=== PATIENT | female | born 1950 | race Caucasian/White ===

== ENCOUNTER 2016-10-17 17:35 | Observation (INO) ==
[2016-10-17 18:03] LABS: Basophils % 0.5 %; Eosinophils # 0.1 K/mcL (0.0-0.6); Eosinophils % 1.1 %; Hematocrit 38.7 % (35.3-44.9); Hemoglobin 12.1 g/dL (11.5-15.4); Immature Granulocytes % 0.4 % (0-4); Lymphocytes # 2.3 K/mcL (0.6-4.6); Mean Corpuscular HGB Conc 31.3 g/dL (31.6-35.5); Mean Corpuscular Hemoglobin 25.3 pg (28.0-33.3); Mean Corpuscular Volume 80.8 fL (83.0-100.0); Mean Platelet Volume 10.2 fL (9.4-12.4); Monocytes # 0.6 K/mcL (0.0-1.3); Monocytes % 8.1 %; Neutrophils # 4.2 K/mcL (1.6-8.9); Platelet Count 323 K/mcL (140-400); Red Blood Count 4.79 M/mcL (3.82-4.97); Red Cell Distribution Width 17.1 % (11.5-14.5); Segmented Neutrophils % 57.9 %
[2016-10-17 18:14] LABS: Prothrombin Time 11.1 Seconds (9.4-12.1)
[2016-10-17 18:16] LABS: Activated Partial Thrombo Time 40.7 Seconds (26.0-36.0); BUN/Creatinine Ratio 14 (6-26); Blood Urea Nitrogen 12 mg/dL (7-20); Calcium 8.8 mg/dL (8.6-10.8); Carbon Dioxide 29 mEq/L (19-29); Chloride 99 mEq/L (98-109); Glucose 93 mg/dL (70-99); Osmolality,Calculated 285 (280-300); Potassium 3.2 mEq/L (3.5-4.5); Sodium 138 mEq/L (136-145); eGFR For African Americans > 60 (> 60); eGFR For Non-African Americans > 60 (> 60)
--- NOTE | 2016-10-17 18:54 | Emergency Department Note ---
Addendum entered and electronically signed by Kaden Narayan DO 10/17/16 19: 24: Troponin negative with no acute abnormalities on EKG or chest x-ray. Patient discussed with the hospitalist and the patient is accepted for further evaluation. Original Note: Disposition Clinical Impression: Chest pain Qualifiers: Chest pain type: unspecified Qualified Code(s): R07.9 - Chest pain, unspecified Disposition: Still a Patient General Adult HPI - General Chief complaint: ED Chest Pain Stated complaint: Chest pain Time Seen by Provider: 10/17/16 17:50 Source: patient Mode of arrival: ambulatory Limitations: no limitations Nursing Notes Reviewed: Yes Vital Signs Reviewed: Yes - History of Present Illness HPI Narrative: Patient here for evaluation of chest pain. History of previous CAD as well as COPD. Patient describes a substernal squeezing that this happened 3 times over the last 2 weeks. Patient states associated nausea and dyspnea. Denies diaphoresis or radiation to the extremities. Patient has cardiac stent placed greater than 5 years ago with cardiac catheterization and evaluation 3 years ago not requiring intervention. Patient follows with Dr. Nguyen at [place]. Pain Scale: 5 - Related Data Home Medications Medication Instructions Recorded Confirmed Albuterol Sulfate [Albuterol 2 puff IH Q4HR PRN 03/12/15 10/17/16 Inhaler] Aspirin 81 mg PO DAILY 03/12/15 10/17/16 Atorvastatin Calcium [Lipitor] 80 mg PO HS 03/12/15 10/17/16 Cholecalciferol (Vitamin D3) 1,000 unit PO BID 03/12/15 10/17/16 [Vitamin D] Clopidogrel [Plavix] 75 mg PO DAILY 03/12/15 10/17/16 Cyanocobalamin (Vitamin B-12) 1,000 mcg PO DAILY 03/12/15 10/17/16 [Vitamin B12] Fluticasone Propionate Nasal 2 spray NS DAILY PRN 03/12/15 10/17/16 [Flonase] Furosemide [Lasix] 80 mg PO BID 03/12/15 10/17/16 Gabapentin [Neurontin] 600 mg PO TID 03/12/15 10/17/16 Isosorbide MONOnitrate (24 HR) 120 mg PO DAILY 03/12/15 10/17/16 [Imdur] Levocetirizine Dihydrochloride 5 mg PO HS 03/12/15 10/17/16 [Xyzal] Meclizine [Antivert] 25 mg PO Q6HR PRN 03/12/15 10/17/16 Montelukast [Singulair] 10 mg PO HS 03/12/15 10/17/16 Pantoprazole Sodium [Protonix] 40 mg PO BID 03/12/15 10/17/16 Potassium Chloride 20 meq PO BID 03/12/15 10/17/16 Spironolactone [Aldactone] 50 mg PO BID 03/12/15 10/17/16 Nitroglycerin [Nitrostat] 0.4 mg SL Q5M PRN 11/30/15 10/17/16 Metoprolol XL (24 HR) Succ [Toprol 50 mg PO BID 10/17/16 10/17/16 XL] Previous Rx's Medication Instructions Recorded Raloxifene [Evista] 60 mg PO DAILY #90 tablet 08/21/16 Ondansetron ODT [Zofran ODT] 4 mg SL Q6HR PRN #14 tab.rapdis 09/13/16 Allergies Allergy/AdvReac Type Severity Reaction Status Date / Time Penicillins Allergy Severe Difficulty Verified 02/20/16 09:26 Breathing adhesive tape Allergy Blister Verified 02/20/16 09:26 ciprofloxacin Allergy Rash Verified 10/17/16 17:44 latex Allergy Itching Verified 09/13/16 01:48 All systems ED: reviewed and negative except as stated. Constitutional: Denies: fever, chills Cardiovascular: Reports: chest pain, dyspnea on exertion. Denies: palpitations Respiratory: Denies: cough, dyspnea, wheezes Gastrointestinal: Denies: abdominal pain, nausea, vomiting Genitourinary: Denies: urgency, dysuria Musculoskeletal: Denies: back pain, neck pain Integumentary: Denies: rash, abrasion Neurological: Denies: headache, weakness Psychiatric: Denies: anxiety, depression Endocrine: Reports: fatigue Past Medical History - Past Medical History Medical history: Reports: asthma, cancer, coronary artery disease, GERD, hyperlipidemia, hypertension, other Surgical history: Reports: appendectomy, cataract, cholecystectomy, herniorrhaphy, orthopedic, other, other Psychiatric history: Reports: no psych history - Social History Smoking Status: Never smoker Smokeless Tobacco Status: No Alcohol use: Reports: none Drug use: Reports: none Physical Exam - General General appearance: alert, in no apparent distress - Head Head exam: atraumatic, normocephalic - Eye Eye exam: Present: normal appearance, PERRL - ENT ENT exam: normal exam, normal oropharynx - Neck Neck exam: Present: normal inspection, full ROM - Chest Chest inspection: Present: normal inspection, symmetric chest wall rise - Respiratory Respiratory exam: Present: normal lung sounds bilaterally. Absent: respiratory distress, wheezes - Cardiovascular Cardiovascular exam: Present: regular rate, normal rhythm - Abdominal Exam Abdominal exam: Present: soft, Non-Tender - Extremities Exam Extremities exam: Present: normal inspection. Absent: tenderness - Expanded Lower Extremity Exam Hip/Pelvis exam: Present: normal inspection. Absent: tenderness - Back Exam Back exam: Present: normal inspection. Absent: tenderness - Neurological Exam Neurological exam: Present: alert, oriented X3, CN II-XII intact. Absent: motor sensory deficit - Psychiatric Psychiatric exam: Present: normal affect, normal mood - Skin Skin exam: Present: warm, dry Course Course Narrative: Patient with history of substernal chest pain is worse with exertion and previous history of CAD. Patient will receive a chest pain workup including EKG , chest x-ray, troponin. Patient will be signed out to the night team for further evaluation of laboratory values and likely admission to the hospitalist. Vital Signs Temperature 97.7 F 10/17/16 17:40 Pulse Rate 71 10/17/16 17:40 Respiratory Rate 16 10/17/16 17:40 Blood Pressure 138/69 10/17/16 17:40 O2 Sat by Pulse Oximetry 97 10/17/16 17:40 Temperature 97.7 F 10/17/16 17:40 Pulse Rate 69 10/17/16 20:10 Respiratory Rate 18 10/17/16 20:10 Blood Pressure 128/65 10/17/16 20:07 O2 Sat by Pulse Oximetry 95 10/17/16 20:10 Oxygen Delivery Oxygen Delivery Room Air Medical Decision Making - Medical Records Medical records reviewed: Yes I reviewed the patient's medical records. - Lab Data Lab results reviewed: Yes I reviewed the patient's lab results. Result diagrams: 10/17/16 17:50 10/17/16 17:50 Lab Results 10/17/16 10/17/16 10/17/16 Range/Units 17:50 17:50 17:50 WBC 7.3 (4.3-11.1) K/mcL RBC 4.79 (3.82-4.97) M/mcL Hgb 12.1 (11.5-15.4) g/dL Hct 38.7 (35.3-44.9) % MCV 80.8 L (83.0-100.0) fL MCH 25.3 L (28.0-33.3) pg MCHC 31.3 L (31.6-35.5) g/dL RDW 17.1 H (11.5-14.5) % Plt Count 323 (140-400) K/mcL MPV 10.2 (9.4-12.4) fL Immature Gran % 0.4 (0-4) % Seg Neutrophils % 57.9 % Lymphocytes % 32.0 % Monocytes % 8.1 % Eosinophils % 1.1 % Basophils % 0.5 % Neutrophils # 4.2 (1.6-8.9) K/mcL Lymphocytes # 2.3 (0.6-4.6) K/mcL Monocytes # 0.6 (0.0-1.3) K/mcL Eosinophils # 0.1 (0.0-0.6) K/mcL Basophils # 0.0 (0.0-0.2) K/mcL PT 11.1 (9.4-12.1) Seconds INR 1.0 APTT 40.7 H (26.0-36.0) Seconds Sodium 138 (136-145) mEq/L Potassium 3.2 L (3.5-4.5) mEq/L Chloride 99 (98-109) mEq/L Carbon Dioxide 29 (19-29) mEq/L BUN 12 (7-20) mg/dL Creatinine 0.83 (0.57-1.11) mg/dL Est GFR ( Amer) > 60 (> 60) Est GFR (Non-Af Amer) > 60 (> 60) BUN/Creatinine Ratio 14 (6-26) Glucose 93 (70-99) mg/dL Calculated Osmolality 285 (280-300) Calcium 8.8 (8.6-10.8) mg/dL Troponin I (0-0.03) ng/mL 10/17/16 Range/Units 17:50 WBC (4.3-11.1) K/mcL RBC (3.82-4.97) M/mcL Hgb (11.5-15.4) g/dL Hct (35.3-44.9) % MCV (83.0-100.0) fL MCH (28.0-33.3) pg MCHC (31.6-35.5) g/dL RDW (11.5-14.5) % Plt Count (140-400) K/mcL MPV (9.4-12.4) fL Immature Gran % (0-4) % Seg Neutrophils % % Lymphocytes % % Monocytes % % Eosinophils % % Basophils % % Neutrophils # (1.6-8.9) K/mcL Lymphocytes # (0.6-4.6) K/mcL Monocytes # (0.0-1.3) K/mcL Eosinophils # (0.0-0.6) K/mcL Basophils # (0.0-0.2) K/mcL PT (9.4-12.1) Seconds INR APTT (26.0-36.0) Seconds Sodium (136-145) mEq/L Potassium (3.5-4.5) mEq/L Chloride (98-109) mEq/L Carbon Dioxide (19-29) mEq/L BUN (7-20) mg/dL Creatinine (0.57-1.11) mg/dL Est GFR ( Amer) (> 60) Est GFR (Non-Af Amer) (> 60) BUN/Creatinine Ratio (6-26) Glucose (70-99) mg/dL Calculated Osmolality (280-300) Calcium (8.6-10.8) mg/dL Troponin I 0.01 (0-0.03) ng/mL - Radiology Data Radiology results reviewed: Yes I reviewed the patient's radiology results. - EKG Data EKG #1 EKG attestation: Yes I reviewed and interpreted this EKG. EKG results narrative: EKG shows sinus rhythm with ventricular rate of 69 bpm. [place] interval 140. QRS 90. Patient has no significant ST elevations or depressions. Patient does have some anterior lead depression and T-wave changes that is slightly changed from previous EKG of 2014. Attestation Statement - Attestation Attestation: I, Richar Comer, examined this patient and my medical decision-making was reviewed with the SPORTS MEDICINE PHYSICIAN/PA/Advanced Practice Nurse/Resident Physician. I agree with the documented findings, disposition and treatment plan as described except to the extent set forth below. 66-year-old female resents with concerns of chest pain. Patient states the pain as a pressure in the center of her chest is occurred intermittently over the past 2 weeks. Patient states that he is she feels short of breath and nauseated with this pain. Patient states that it might feel similar to the previous time where she had stents placed. Patient denies recent trauma. She states she has a history of COPD but that this feels different. Patient's initial troponin was negative. Her EKG showed normal sinus rhythm with PACs with a rate of 64 without evidence of STEMI. Chest x-ray does not show significant abnormality. She will be admitted to the hospital for further care and evaluation of chest pain to rule out ACS.
[2016-10-17] MEDS ORDERED: Aspirin 81 MG TAB.CHEW PO STA (19:34)
[2016-10-17] MEDS: Nitroglycerin 0.4 MG TAB.SUBL SL PRN ×2 (20:04→20:09)
[2016-10-17] MEDS ORDERED: Naloxone 0.4 MG/ML INJ IVP PRN (20:06)
[2016-10-17] MEDS ORDERED: Mag Hydrox/Al Hydrox/Simeth 30 ML UDC PO PRN (20:06)
[2016-10-17] MEDS ORDERED: Acetaminophen 325 MG TABLET PO PRN (20:06)
[2016-10-17] MEDS ORDERED: Nitroglycerin 0.4 MG TAB.SUBL SL PRN (20:08)
[2016-10-17] MEDS ORDERED: Ondansetron ODT 4 MG TAB.RAPDIS SL PRN (20:08)
[2016-10-17] MEDS ORDERED: Ondansetron 4 MG/2 ML VIAL IVP ONE (20:14)
[2016-10-17] MEDS ORDERED: Acetaminophen 325 MG TABLET PO ONE (20:14)
[2016-10-17] MEDS ORDERED: Ondansetron 4 MG/2 ML VIAL ONE (20:14)
--- NOTE | 2016-10-17 20:43 | Internal Med History&Physical ---
Date of Encounter: 10/17/16 Time of Encounter: 20:40 Assessment and Plan (1) Chest pain Current visit: Yes Status: Acute Patient presents with chest pain and SOB since last night. EKG with sinus rhythm and no ST elevations or depressions, troponin negative at 0.01. Patient with history of CAD s/p stent to RCA. She had a C 11/16/13 which sowed 40% LAD stenosis, 40% circ stenosis, 20% proximal RCA stenosis and patent distal RCA stent. 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 NPO after midnight and hold beta beatriz and nitrates after midnight for stress test in the morning. Qualifiers: Chest pain type: precordial pain Qualified Code(s): R07.2 - Precordial pain (2) CAD (coronary artery disease) Current visit: Yes Status: Acute Patient has history of CAD s/p stent to RCA. Continue home doses of aspirin, plavix, metoprolol, imdur and lipitor. Qualifiers: Coronary Disease-Associated Artery/Lesion type: [place] artery [place] vs. transplanted heart: [place] heart Associated angina: angina presence unspecified Qualified Code(s): I25.10 - Atherosclerotic heart disease of [place] coronary artery without angina pectoris (3) COPD (chronic obstructive pulmonary disease) Current visit: Yes Status: Acute Continue home doses of singulair, albuterol inhaler. Qualifiers: COPD type: unspecified COPD Qualified Code(s): J44.9 - Chronic obstructive pulmonary disease, unspecified (4) Hypokalemia Current visit: Yes Status: Acute potassium of 3.2. Patient takes 20mEq of potassium BID. She is on high dose of lasix (80mg BID) and may need increased potassium supplementation. Give 40mEq potassium tonight. Check chemistry and magnesium with morning labs. (5) DVT prophylaxis Current visit: Yes Status: Acute anti-embolic stockings lovenox 40mg SQ daily. Internal Medicine - H&P: HPI Chief complaint: chest pain Admitted From: Emergency Dept Plans for Post Hospital Care: Home History of present illness: Ms. Ferguson is a 66 year old female with hypertension, hyperlipidemia, COPD, coronary artery disease status post stent placement presents to the emergency department today with complaints of chest pain. Patient reports that over the last 2 weeks she has had 3 episodes of chest pressure accompanied by shortness of breath which lasted for several seconds and then went away on its own. Last night she developed the chest pressure again, she describes it as squeezing and pressure and the sensation did not go away. She reports that she felt like she had trouble breathing or through the night and was coughing without any production of sputum. She denies any headache, palpitations, vomiting, fever, chills, sweats. She has bilateral lower extremity swelling, but it is any worse than her usual baseline. Evaluation in the emergency department including EKG showed sinus rhythm and no ST elevations or depressions, troponin was negative at 0.01. She had mild hypokalemia with potassium of 3.2 on exam, patient alert and oriented, in no acute distress. Heart had regular rate and rhythm. Lungs were mostly clear with mild expiratory wheeze heard in left upper lobe. Abdomen soft, tender at the patient states this is chronic for her. Bilateral lower extremities with +1 pitting edema. Past Med Surg Social Fam HX - Past Medical History Medical history: asthma, cancer, COPD, coronary artery disease, GERD, hyperlipidemia, hypertension, other Psychiatric history: no psych history - Past Surgical History Surgical History: angioplasty/stent, appendectomy, breast surgery, cataract, cholecystectomy, herniorrhaphy, hysterectomy, orthopedic, other, other - Social History Smoking Status: Never smoker Smokeless Tobacco Status: No Alcohol use: none Drug use: none - Family History Mother Living Status: Age at : 92 Hx Family Cancer: Yes Sister Living Status: Cause of : breast cancer Hx Family Cancer: Yes Father Living Status: Age at : 60 Cause of : [place] Hx Family Cardiac Disorders: Yes Internal Medicine - H&P: Meds Albuterol Sulfate [Albuterol Inhaler] 2 puff IH Q4HR PRN 03/12/15 [History] Aspirin 81 mg PO DAILY 03/12/15 [History] Atorvastatin Calcium [Lipitor] 80 mg PO HS 03/12/15 [History] Cholecalciferol (Vitamin D3) [Vitamin D] 1,000 unit PO BID 03/12/15 [History] Clopidogrel [Plavix] 75 mg PO DAILY 03/12/15 [History] Cyanocobalamin (Vitamin B-12) [Vitamin B12] 1,000 mcg PO DAILY 03/12/15 [History ] Fluticasone Propionate Nasal [Flonase] 2 spray NS DAILY PRN 03/12/15 [History] Furosemide [Lasix] 80 mg PO BID 03/12/15 [History] Gabapentin [Neurontin] 600 mg PO TID 03/12/15 [History] Isosorbide MONOnitrate (24 HR) [Imdur] 120 mg PO DAILY 03/12/15 [History] Levocetirizine Dihydrochloride [Xyzal] 5 mg PO HS 03/12/15 [History] Meclizine [Antivert] 25 mg PO Q6HR PRN 03/12/15 [History] Montelukast [Singulair] 10 mg PO HS 03/12/15 [History] Pantoprazole Sodium [Protonix] 40 mg PO BID 03/12/15 [History] Potassium Chloride 20 meq PO BID 03/12/15 [History] Spironolactone [Aldactone] 50 mg PO BID 03/12/15 [History] Nitroglycerin [Nitrostat] 0.4 mg SL Q5M PRN 11/30/15 [History] Raloxifene [Evista] 60 mg PO DAILY #90 tablet 08/21/16 [Rx] Ondansetron ODT [Zofran ODT] 4 mg SL Q6HR PRN #14 tab.rapdis 09/13/16 [Rx] Metoprolol XL (24 HR) Succ [Toprol XL] 50 mg PO BID 10/17/16 [History] Allergies Penicillins Allergy (Severe, Verified 02/20/16 09:26) Difficulty Breathing adhesive tape Allergy (Verified 02/20/16 09:26) Blister ciprofloxacin Allergy (Verified 10/17/16 17:44) Rash latex Allergy (Verified 09/13/16 01:48) Itching All Systems PM: A 10-system review of systems was performed and is negative for pertinent findings except as documented above in the HPI. - Constitutional Constitutional: no chills, no fever(s), no night sweats - EENT Eyes: no change in vision, no discharge, no pain, no photophobia Ears: no ear discharge, no ear pain, no tinnitus Nose, mouth and throat: no dysphagia, no nasal discharge, no neck pain, no sore throat - Cardiovascular Cardiovascular ROS IM: chest pain, dyspnea, edema, no diaphoresis, no lightheadedness, no palpitations, no syncope - Respiratory Respiratory: cough, dyspnea, no wheezing, no excessive phlegm production - Gastrointestinal Gastrointestinal: diarrhea (chronic - has IBS-D), no abdominal pain, no hematemesis, no hematochezia, no melena, no nausea, no vomiting - Genitourinary Genitourinary: no change in urinary stream, no dysuria, no flank pain, no hematuria - Musculoskeletal Musculoskeletal ROS IM: no numbness, no tingling - Integumentary Integumentary IM: no rash, no unusual bruising - Neurological Neurological ROS: no confusion, no convulsions, no focal weakness, no numbness, no tingling, no tremor(s) - Hematologic/Lymphatic Hematologic/Lymphatic: no easy bruising - Constitutional Vitals: Temp Pulse Resp BP Pulse Ox 97.7 F 69 18 128/65 95 10/17/16 17:40 10/17/16 20:10 10/17/16 20:10 10/17/16 20:07 10/17/16 20:10 General appearance: Present: A&O X 3, pleasant, no acute distress - Head Head exam: Present: atraumatic, normocephalic - Eye Eye exam: Present: PERRL, conjuntiva pink, sclera anicteric Pupils: Present: PERRL - Neck Neck exam general surgery: Present: supple, trachea midline. Absent: lymphadenopathy - Respiratory Respiratory exam: Present: CTAB, wheezes (mild expiratory wheeze). Absent: accessory muscle use, rales, rhonchi - Cardiovascular Cardiovascular exam: Present: RRR, +S1, +S2. Absent: diastolic murmur, gallop, rubs, systolic murmur - GI/Abdominal GI/Abdominal exam: Present: normal bowel sounds, soft, tenderness (mild diffuse , patient reports this is chronic), no peritoneal signs. Absent: distended - Extremities Exam Extremities exam: Present: pedal edema (+1 BLE edema), warm, radial pulses palpable and symetrical. Absent: calf tenderness, cyanotic - Neurological Exam Neurological exam: Present: CN II-XII intact, oriented X3, no focal deficits. Absent: facial droop, speech deficit - Skin Skin exam: Present: dry, intact Internal Med - H&P Results - Labs CBC & Chem 7: 10/17/16 17:50 10/17/16 17:50 Labs: All Lab Results (24 Hours) 10/17/16 10/17/16 10/17/16 Range/Units 17:50 17:50 17:50 WBC 7.3 (4.3-11.1) K/mcL RBC 4.79 (3.82-4.97) M/mcL Hgb 12.1 (11.5-15.4) g/dL Hct 38.7 (35.3-44.9) % MCV 80.8 L (83.0-100.0) fL MCH 25.3 L (28.0-33.3) pg MCHC 31.3 L (31.6-35.5) g/dL RDW 17.1 H (11.5-14.5) % Plt Count 323 (140-400) K/mcL MPV 10.2 (9.4-12.4) fL Immature Gran % 0.4 (0-4) % Seg Neutrophils % 57.9 % Lymphocytes % 32.0 % Monocytes % 8.1 % Eosinophils % 1.1 % Basophils % 0.5 % Neutrophils # 4.2 (1.6-8.9) K/mcL Lymphocytes # 2.3 (0.6-4.6) K/mcL Monocytes # 0.6 (0.0-1.3) K/mcL Eosinophils # 0.1 (0.0-0.6) K/mcL Basophils # 0.0 (0.0-0.2) K/mcL PT 11.1 (9.4-12.1) Seconds INR 1.0 APTT 40.7 H (26.0-36.0) Seconds Sodium 138 (136-145) mEq/L Potassium 3.2 L (3.5-4.5) mEq/L Chloride 99 (98-109) mEq/L Carbon Dioxide 29 (19-29) mEq/L BUN 12 (7-20) mg/dL Creatinine 0.83 (0.57-1.11) mg/dL Est GFR ( Amer) > 60 (> 60) Est GFR (Non-Af Amer) > 60 (> 60) BUN/Creatinine Ratio 14 (6-26) Glucose 93 (70-99) mg/dL Calculated Osmolality 285 (280-300) Calcium 8.8 (8.6-10.8) mg/dL Troponin I (0-0.03) ng/mL 10/17/16 Range/Units 17:50 WBC (4.3-11.1) K/mcL RBC (3.82-4.97) M/mcL Hgb (11.5-15.4) g/dL Hct (35.3-44.9) % MCV (83.0-100.0) fL MCH (28.0-33.3) pg MCHC (31.6-35.5) g/dL RDW (11.5-14.5) % Plt Count (140-400) K/mcL MPV (9.4-12.4) fL Immature Gran % (0-4) % Seg Neutrophils % % Lymphocytes % % Monocytes % % Eosinophils % % Basophils % % Neutrophils # (1.6-8.9) K/mcL Lymphocytes # (0.6-4.6) K/mcL Monocytes # (0.0-1.3) K/mcL Eosinophils # (0.0-0.6) K/mcL Basophils # (0.0-0.2) K/mcL PT (9.4-12.1) Seconds INR APTT (26.0-36.0) Seconds Sodium (136-145) mEq/L Potassium (3.5-4.5) mEq/L Chloride (98-109) mEq/L Carbon Dioxide (19-29) mEq/L BUN (7-20) mg/dL Creatinine (0.57-1.11) mg/dL Est GFR ( Amer) (> 60) Est GFR (Non-Af Amer) (> 60) BUN/Creatinine Ratio (6-26) Glucose (70-99) mg/dL Calculated Osmolality (280-300) Calcium (8.6-10.8) mg/dL Troponin I 0.01 (0-0.03) ng/mL - Diagnostic Studies Chest x-ray Additional comments: Chest X-Ray 10/17/16 18:31 IMPRESSION: No acute cardiopulmonary disease. D/ / Dajuan Ocampo MD / Dajuan Ocampo MD Interpreting Provider: Dajuan Ocampo MD
[2016-10-17] MEDS ORDERED: Metoprolol XL (24 HR) Succ 50 MG TAB.ER.24H PO SCH (21:00)
[2016-10-17] MEDS: Gabapentin 300 MG CAPSULE PO SCH (21:58)
[2016-10-17] MEDS: Furosemide 40 MG TABLET PO SCH (22:00)
[2016-10-18 00:51] LABS: Basophils % 0.4 %; Eosinophils # 0.1 K/mcL (0.0-0.6); Eosinophils % 0.8 %; Hematocrit 34.9 % (35.3-44.9); Hemoglobin 10.8 g/dL (11.5-15.4); Immature Granulocytes % 0.5 % (0-4); Lymphocytes # 1.9 K/mcL (0.6-4.6); Lymphocytes % 20.5 %; Mean Corpuscular HGB Conc 30.9 g/dL (31.6-35.5); Mean Corpuscular Volume 80.8 fL (83.0-100.0); Mean Platelet Volume 10.5 fL (9.4-12.4); Monocytes # 0.7 K/mcL (0.0-1.3); Monocytes % 7.5 %; Neutrophils # 6.5 K/mcL (1.6-8.9); Platelet Count 292 K/mcL (140-400); Red Blood Count 4.32 M/mcL (3.82-4.97); Segmented Neutrophils % 70.3 %
[2016-10-18 01:07] LABS: BUN/Creatinine Ratio 13 (6-26); Blood Urea Nitrogen 12 mg/dL (7-20); Calcium 8.6 mg/dL (8.6-10.8); Carbon Dioxide 28 mEq/L (19-29); Chloride 101 mEq/L (98-109); Cholesterol 126 mg/dL (< 200); Glucose 125 mg/dL (70-99); HDL Cholesterol 42 mg/dL (40-59); LDL Cholesterol,Calculated 72 mg/dL (0-99); Magnesium 1.9 mg/dL (1.6-2.6); Osmolality,Calculated 287 (280-300); Potassium 3.4 mEq/L (3.5-4.5); Sodium 138 mEq/L (136-145); Triglycerides 60 mg/dL (< 150); eGFR For African Americans > 60 (> 60); eGFR For Non-African Americans 59 (> 60)
[2016-10-18] MEDS ORDERED: Regadenoson 0.4 MG/5 ML SYRINGE IVP ONE (06:42)
[2016-10-18] MEDS ORDERED: *HR* Enoxaparin 40 MG/0.4 ML SYRINGE SQ SCH (07:00)
[2016-10-18] MEDS ORDERED: Isosorbide MONOnitrate (24 HR) 60 MG TAB.ER.24H PO SCH (09:00)
[2016-10-18] MEDS ORDERED: Aspirin 81 MG TAB.CHEW PO SCH (09:00)
[2016-10-18] MEDS: Gabapentin 300 MG CAPSULE PO SCH ×2 (10:28→15:29)
[2016-10-18] MEDS: Furosemide 40 MG TABLET PO SCH (10:28)
--- NOTE | 2016-10-18 10:53 | ECHO - Doppler Report ---
Echocardiogram Name: Dimple Ferguson Date of Study: 10/18/2016 Date: 1950 Ht: 59.0 in Medical Record#: [id number] Age: 66 Wt: 186.0 lb Gender: Female BSA: 1.79 Order #: [id number] [facility] Room #: [id number] Reading Physician: Josh Ahn MD, [facility] Well Surveying Engineer: Dorothy Nielson Ordering Physician: Olive Jenkins MD Primary Physician: Javier Espinoza MD Indications: Chest pain, Congestive heart failure Impressions: No pulmonary hypertension. Mild left ventricular diastolic dysfunction. LVEF 55-60%. No significant valvular dysfunction. Left Ventricular Wall Motion: Rest Echo Findings All wall segments showed normal motion. Findings: Study Quality * Technically adequate exam. Right Ventricle * Normal right ventricular structure and function. Left Atrium * Normal left atrial size. Right Atrium * Normal right atrial size. Aortic Valve * Trileaflet aortic valve with normal function. Mitral Valve * Normal mitral valve structure and function. Interatrial Septum * No evidence of PFO by color Doppler. * Lipomatous interatrial septum. Aorta * Normally sized aortic root. Pericardium * The pericardium appears normal. ECG Findings * Normal sinus rhythm. Tricuspid Valve * Trace tricuspid regurgitation. * No tricuspid stenosis. * Estimated RVSP is 27 mmHg. * Estimated RA pressure is 3-5 mmHg. * No pulmonary hypertension. Left Ventricle * Mild left ventricular diastolic dysfunction. * LVEF 55-60%. History Hypertension Diabetes Hypercholesteremia Rheumatic Fever Years 4 Packs 0.5 Family History of CAD History of CAD/PTCA Myocardial Infarction Congestive Heart Failure 10/06/2013 a Previous Echo was performed. Measurements: BP: 109/ 71 2D Normal Values RVIDd: 2.60 cm <2.7 cm IVSd: .90 cm 0.6 - 1.0 cm LVIDd: 4.30 cm 3.7 - 5.6 cm LVPWd: .90 cm 0.6 - 1.1 cm LVIDs: 2.50 cm 1.5 - 3.6 cm AO: 3.00 cm < 4.0 cm LA: 3.70 cm 2.0 - 4.0cm %FS: 41.90 cm >25 % LA volume: 47 Mitral Valve Peak E:.83 m/sec Peak A:.94 m/sec E/A Ratio:0.9 Peak E' Lat Adiel:6.92 cm/s Peak E' Med Adiel:5.85 cm/s E/E' Lat Ratio:12 E/E' Med Ratio:14.2 Tricuspid Valve TV Regurg Peak Grad: 27.00mmHg TV Regurg Peak Adiel: 2.58m/sec Updated by Josh Ahn MD, [facility] on 10/18/2016 10:45:29 AM electronically signed on 10/18/2016 10:46:47 AM with status of Final Wall Motion [place]: 1=Normal, 2=Hypokinesis, 3=Akinesis, 4=Dyskinesis, 5=Aneurysmal, 6=Hyperkinetic, X=Not Visualized (Blank)=Missing
--- NOTE | 2016-10-18 11:38 | Discharge Summary ---
Date of Encounter: 10/19/16 Time of Encounter: 11:30 - Discharge Diagnosis (1) Diastolic heart failure Priority: Primary Status: Acute Comments: Acute on chronic. Appears to be in a mild exacerbation. Treated with 1 time dose of IV furosemide. On furosemide and Aldactone at home. Increased pedal edema and a slightly increased shortness of breath with exertion times several months. Follow-up outpatient. Qualifiers: Heart failure chronicity: acute on chronic Qualified Code(s): I50.33 - Acute on chronic diastolic (congestive) heart failure (2) Chest pain Priority: Primary Status: Acute Comments: Patient denied overt chest pain on day of discharge but continued to experience "twinges" in her chest that felt like a little bit of pressure that would happen for one second at a time. She denied associated symptoms with these twinges. Troponins negative 3. Echocardiogram unremarkable with ejection fraction of 55-60% and mild diastolic dysfunction. Patient with mildly increased pedal edema during this admission with mildly increased shortness of breath. Although she states her increased shortness of breath has been happening for several months. Treated with one-time dose of IV furosemide. Stress test negative. ACS ruled out. Follow-up outpatient. Qualifiers: Chest pain type: precordial pain Qualified Code(s): R07.2 - Precordial pain (3) CAD (coronary artery disease) Priority: Secondary Status: Chronic Qualifiers: Coronary Disease-Associated Artery/Lesion type: [place] artery [place] vs. transplanted heart: [place] heart Associated angina: angina presence unspecified Qualified Code(s): I25.10 - Atherosclerotic heart disease of [place] coronary artery without angina pectoris (4) COPD (chronic obstructive pulmonary disease) Priority: Secondary Status: Chronic Comments: No acute exacerbation Qualifiers: COPD type: unspecified COPD Qualified Code(s): J44.9 - Chronic obstructive pulmonary disease, unspecified (5) DVT prophylaxis Priority: Primary Status: Acute Comments: Observation patient. Up ad maria a. (6) Hypokalemia Priority: Primary Status: Acute Comments: Improved overnight and is nearly resolved. Magnesium normal. Follow-up outpatient (7) History of breast cancer Priority: Secondary Status: Chronic - Discharge Medications Home Medications: Albuterol Sulfate [Albuterol Inhaler] 2 puff IH Q4HR PRN 03/12/15 [History] Aspirin 81 mg PO DAILY 03/12/15 [History] Atorvastatin Calcium [Lipitor] 80 mg PO HS 03/12/15 [History] Cholecalciferol (Vitamin D3) [Vitamin D] 1,000 unit PO BID 03/12/15 [History] Clopidogrel [Plavix] 75 mg PO DAILY 03/12/15 [History] Cyanocobalamin (Vitamin B-12) [Vitamin B12] 1,000 mcg PO DAILY 03/12/15 [History ] Fluticasone Propionate Nasal [Flonase] 2 spray NS DAILY PRN 03/12/15 [History] Furosemide [Lasix] 80 mg PO BID 03/12/15 [History] Gabapentin [Neurontin] 600 mg PO TID 03/12/15 [History] Isosorbide MONOnitrate (24 HR) [Imdur] 120 mg PO DAILY 03/12/15 [History] Levocetirizine Dihydrochloride [Xyzal] 5 mg PO HS 03/12/15 [History] Meclizine [Antivert] 25 mg PO Q6HR PRN 03/12/15 [History] Montelukast [Singulair] 10 mg PO HS 03/12/15 [History] Pantoprazole Sodium [Protonix] 40 mg PO BID 03/12/15 [History] Potassium Chloride 20 meq PO BID 03/12/15 [History] Spironolactone [Aldactone] 50 mg PO BID 03/12/15 [History] Nitroglycerin [Nitrostat] 0.4 mg SL Q5M PRN 11/30/15 [History] Raloxifene [Evista] 60 mg PO DAILY #90 tablet 08/21/16 [Rx] Ondansetron ODT [Zofran ODT] 4 mg SL Q6HR PRN #14 tab.rapdis 09/13/16 [Rx] Metoprolol XL (24 HR) Succ [Toprol Xl] 50 mg PO BID 10/17/16 [History] Allergies/Adverse Reactions: Allergies Penicillins Allergy (Severe, Verified 02/20/16 09:26) Difficulty Breathing adhesive tape Allergy (Verified 02/20/16 09:26) Blister ciprofloxacin Allergy (Verified 10/17/16 17:44) Rash latex Allergy (Verified 09/13/16 01:48) Itching Procedures/tests Complete & Pending: Procedures Performed prior 72 hours Category Date Time Status EV echocardiogram Routine Y 10/18/16 22:26 Completed SP pharm nuclear stress Routine Y 10/18/16 Completed Date of admission: 10/17/16 20:25 Primary care physician: Javier Espinoza MD Discharging clinician: Krystle Fermin Anticipated date of discharge: 10/18/16 (if stress test negative) - Patient Status Disposition: Home, Self-Care Condition: Good Functional capacity at discharge: independent ambulation Overall status at discharge: patient is back to baseline - Discharge Instructions Instructions: Heart Failure (DC), Chest Pain (DC), Hypokalemia (DC) Follow Up With: Javier Espinoza MD [Primary Care Provider] - (Requested a follow up appt. in [place], [place]. Office will call you in 2-3 business days with appt time. ) Additional Instructions: Follow-up with primary care provider within one to 2 weeks - Diet and Activity Activity: increase activity as tolerated Diet: low fat, low cholesterol (fluid restriction 1.5L per day), low salt diet Hospital course: Ms. Ferguson is a 66 year old female with past history of hypertension, hyperlipidemia, COPD, CAD status post stent placement. Patient presented to the emergency department chief complaint of chest pain. Patient stating over the past 2 weeks prior to presentation that she has had 3 episodes of chest pressure that was associated with shortness of breath and lasted for several seconds then went away on its own. Last night, the night prior to presentation , she developed chest pressure again that she described as squeezing and pressure sensation but this time it did not go away and she felt as if she had trouble breathing throughout the night associated with coughing prompting her presentation to the emergency department. Workup in the emergency department unremarkable except for mild hypokalemia. Chest x-ray negative. No ECG changes. Patient was admitted to the hospitalist service for further evaluation and management. Patient with pedal edema that was slightly worsened than her norm. She also endorsed shortness of breath with exertion or slightly worse in her norm but she states the swelling and shortness of breath and occurring for a couple months. She was treated with 1 dose of IV furosemide on top of her home regimen with diuretics with improvement in her shortness of breath and pedal edema. Echocardiogram unremarkable with ejection fraction of 55-60% and mild diastolic dysfunction. Patient was euvolemic and consistent with her baseline on examination. Stress test negative. ACS ruled out. She was educated on fluid and sodium restricted diets. She was discharged home in stable condition with close outpatient follow-up recommended. ITS Impressions Chest X-Ray 10/17/16 18:31 IMPRESSION: No acute cardiopulmonary disease. D/ / Dajuan Ocampo MD / Dajuan Ocampo MD Interpreting Provider: Dajuan Ocampo MD Echocardiogram impressions: No pulmonary hypertension. Mild left ventricular diastolic dysfunction. LVEF 55-60%. No significant valvular dysfunction. Regadenosen nuclear stress test impression: Perfusion imaging was negative for ischemia or infarct. Pharmacologic ECG was nondiagnostic for ischemia. Patient had no chest pain with stress. No arrhythmias noted with stress. Gated ejection fraction is greater than 70%. There is no evidence of TID. - Time Spent with Patient Total time spent providing and/or coordinating discharge services: - Constitutional Vitals: Temp Pulse Resp BP Pulse Ox 98.1 F 64 16 112/72 93 10/18/16 11:01 10/18/16 11:01 10/18/16 11:01 10/18/16 11:01 10/18/16 11:01 General appearance: Present: A&O X 3, pleasant, no acute distress, answers questions appropriately - Head Head exam: Present: atraumatic, normocephalic - Eye Eye exam: Present: PERRL, conjuntiva pink, sclera anicteric Pupils: Present: PERRL - Neck Neck exam general surgery: Present: supple, trachea midline. Absent: lymphadenopathy - Respiratory Respiratory exam: Present: CTAB. Absent: accessory muscle use, rales, respiratory distress, rhonchi, wheezes - Cardiovascular Cardiovascular exam: Present: RRR, +S1, +S2. Absent: diastolic murmur, gallop, rubs, systolic murmur - GI/Abdominal GI/Abdominal exam: Present: normal bowel sounds, soft, no peritoneal signs. Absent: distended, tenderness - Extremities Exam Extremities exam: Present: pedal edema, warm, radial pulses palpable and symetrical. Absent: calf tenderness, cyanotic - Neurological Exam Neurological exam: Present: alert, CN II-XII intact, normal gait, oriented X3, no focal deficits, strengths equal and symetr throughout. Absent: pronater drift, facial droop, speech deficit - Skin Skin exam: Present: dry, intact, normal color, warm
[2016-10-18] MEDS ORDERED: Furosemide 40 MG/4 ML VIAL IVP ONE (11:55)
--- NOTE | 2016-10-18 12:22 | Nuclear Medicine Stress Report ---
Regadenoson Nuclear Stress Name: Dimple Ferguson Date of Study: 10/18/2016 Date: 1950 Ht: 59.0 in Medical Record#: [id number] Age: 66 Wt: 186.0 lb Gender: Female Order #: [id number] Location: [facility] Room: [facility] Supervising Provider: Alonzo Lux CNP Ordering Physician: Krystle Fermin CNP Primary Care Physician: Javier Espinoza MD Stress Technologist: Frank Miranda ASSISTANT CHIEF ENGINEER, [employer] Representative: Abbe Mcintyre Indications: Chest Pain Impression: Perfusion imaging was negative for ischemia or infarct. Pharmacologic ECG was non diagnostic for ischemia. Patient had no chest pain with stress. No arrhythmias noted with stress. Gated EF = >70%. There is no evidence of TID. History: Hypertension Hypercholesteremia Prior PCI Stress Test Summary: Stress Test Type: Pharmacologic Regadenoson 0.4mg/5ml given IV Baseline Information: Initial Heart Rate: 65 Blood Pressure: 112/70 Stress Information: Stress Time: 4 min 00 sec Test Terminated Due to (primary): Completed Protocol Maximum Blood Pressure: 96/70 Maximum Heart Rate: 86 Percent Maximum Heart Rate Achieved: 56 Double Product: 8256 METS Reached: 1 Symptoms: Shortness of breath, Nausea, Headache Nuclear Summary: SPECT myocardial perfusion imaging using Tc99m Sestamibi given intravenously was performed at rest and following cardiac stress testing. The resting images were obtained following initial dose of 11.7 mCi. Following stress an additional dose of 34.8 mCi was given at peak exercise or 30 seconds post regadenoson infusion. Medication Given: Time Medication Dose Units Route Findings: Stress Note * Resting ECG demonstrated normal sinus rhythm. * No baseline arrhythmias were noted. * Pharmacologic stress ECG is non diagnostic for ischemia due to failure to reach target heartrate. * No arrhythmias were noted during stress. * Patient had no chest pain during stress. Hemodynamic responses * Normal hemodynamic responses to pharmacologic stress. Study Quality * Study quality is average. Gated EF > 70% * Gated EF > 70%. Left Ventricle * The left ventricle is not dilated. NORMALS * Normal wall motion. * Normal Segmental Perfusion in rest. * Normal segmental perfusion in stress. TID * No evidence of transient ischemic dilatation. Updated by Josh Ahn MD, FACC on 10/18/2016 12:16:20 PM electronically signed on 10/18/2016 12:17:06 PM with status of Final
[2016-10-18 14:59] VITALS: BP 107/68
--- NOTE | 2016-10-20 11:21 | Electrocardiograph Report ---
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
== END 2016-10-18 16:54 | disposition home or self-care (01) ==
LOC: EMEROO 17:35 → 3BNU 17:35
PROVIDERS: ADMIT Nurse Practitioner Family; ATTEND Nurse Practitioner Family

== ENCOUNTER 2018-10-26 04:23 | Observation (INO) ==
[2018-10-26] MEDS ORDERED: Aspirin 81 MG TAB.CHEW PO ONE (04:26)
--- NOTE | 2018-10-26 04:42 | Emergency Department Note ---
Disposition Clinical Impression: Chest pain Qualifiers: Chest pain type: unspecified Qualified Code(s): R07.9 - Chest pain, unspecified Disposition: Admitted As Inpatient Condition: Good Time of Disposition: 05:43 Chest Pain HPI - General Chief Complaint: ED Chest Pain Stated Complaint: CP Time Seen by Provider: 10/26/18 04:26 Source: patient Limitations: no limitations Vital Signs Reviewed: Yes Nursing Notes Reviewed: Yes - History of Present Illness HPI Narrative: 68yo female presents from home for evaluation of chest pain. She and were awake at 3:30 this morning watching television when she felt abrupt onset midsternal chest sharpness followed by a heavy sensation that radiated to her left jaw. Though she denies outright shortness of breath, she does state that she was breathing heavy. Somewhat improved after her 2nd SL nitro taken at home (taken 30 minutes apart). She has also been belching while driving into the emergency department. PMH: Hypertension, hyperlipidemia, CAD status post ACS with stent 1. Patient has spinal cord stimulator in place. ROS: Positive: Chest heaviness, dyspnea Negative: Amputation's, diaphoresis, nausea, vomiting, unusual back pain, abdominal pain Severity scale (1-10): 3 - Related Data Home Medications Medication Instructions Recorded Confirmed Albuterol Sulfate [Ventolin Hfa] 2 puff IH Q4H PRN 10/16/17 10/26/18 Aspirin [Lo-Dose Aspirin EC] 81 mg PO DAILY 10/16/17 10/26/18 Atorvastatin Calcium 80 mg PO HS 10/16/17 10/26/18 Cholecalciferol (D-3) [Vitamin D] 2,000 unit PO DAILY 10/16/17 10/26/18 Cyanocobalamin/Folic Acid [B-12 1 tab SL DAILY 10/16/17 08/26/18 1,000 Mcg Sub Tablet] Fluticasone Propionate Nasal 1 spr NS DAILY PRN 10/16/17 10/26/18 [Flonase] Fluticasone/Vilanterol [Breo 1 puff IH DAILY PRN 10/16/17 08/26/18 Ellipta 100-25 Mcg INH] Furosemide [Lasix] 80 mg PO BID 10/16/17 10/26/18 Isosorbide MONOnitrate [Isosorbide 120 mg PO DAILY 10/16/17 10/26/18 Mononitrate ER] Metoprolol Succinate 50 mg PO BID 10/16/17 10/26/18 Montelukast [Singulair] 10 mg PO HS 10/16/17 10/26/18 Pantoprazole Sodium 40 mg PO BID 10/16/17 10/26/18 Potassium Chloride [K-Tab ER] 20 meq PO BID 10/16/17 10/26/18 Pregabalin [Lyrica] 150 mg PO BID 10/16/17 10/26/18 Spironolactone [Aldactone] 50 mg PO BID 10/16/17 10/26/18 Biotin 1,000 mcg PO DAILY 04/01/18 10/26/18 Nitroglycerin [Nitrostat] 0.4 mg SL AD PRN 04/01/18 10/26/18 Baclofen 10 mg PO TID PRN 10/26/18 10/26/18 Budesonide/Formoterol 160/4.5 2 puff IH DAILY 10/26/18 10/26/18 [Symbicort 160/4.5] Levocetirizine Dihydrochloride 5 mg PO DAILY 10/26/18 10/26/18 [Allergy Relief (Xyzal)] Meclizine 10/26/18 10/26/18 Meclizine HCl [Verticalm] 25 mg PO Q6HR PRN 10/26/18 10/26/18 Nitrofurantoin (BID) [Macrobid] 100 mg PO DAILY 10/26/18 10/26/18 Previous Rx's Medication Instructions Recorded Cefpodoxime Proxetil 100 mg PO BID #14 tablet 03/23/18 Allergies Allergy/AdvReac Type Severity Reaction Status Date / Time Penicillins Allergy Severe Difficulty Verified 08/26/18 11:46 Breathing adhesive tape Allergy Blister Verified 08/26/18 11:46 ciprofloxacin Allergy Rash Verified 08/26/18 11:46 latex Allergy Itching Verified 08/26/18 11:46 cephalexin [From Keflex] AdvReac Gastrointestinal Verified 08/26/18 11:46 Upset sulfamethoxazole AdvReac Gastrointestinal Verified 08/26/18 11:46 [From Bactrim] Upset trimethoprim [From Bactrim] AdvReac Gastrointestinal Verified 08/26/18 11:46 Upset All systems ED: reviewed and negative except as stated. Review of Systems: As Per HPI Chest Pain PMH - Past Medical History Medical history: Reports: asthma, cancer, COPD, coronary artery disease, GERD, hyperlipidemia, hypertension, other Surgical history: Reports: angioplasty/stent, appendectomy, breast surgery, cataract, cholecystectomy, herniorrhaphy, hysterectomy, orthopedic, other, other Psychiatric history: Reports: no psych history - Social History Smoking Status: Never smoker Alcohol use: Reports: none Drug use: Reports: none Physical Exam Vital Signs Reviewed General: Patient is alert, oriented, and in no acute distress. Head: atraumatic, normocephalic Eye: normal appearance, PERRL, EOMI, no scleral icterus, no conjunctival injection ENT: mucous membranes moist, normal external ear exam Neck: normal inspection, trachea midline, full ROM Chest: normal inspection, symmetric chest rise Respiratory: Good respiratory effort. Bilateral breath sounds are clear without wheezing, crackles, or rhonchi. Cardiovascular: Regular rate and rhythm. No clicks, rubs, gallops, or murmors. Normal heart sounds. No pedal edema. Bilateral radial pulses 2/4 and equal. Abdomen: Bowel sounds present normoactive. Abdomen is soft, nondistended, and nontender. No guarding or rebound. No organomegaly noted. Musculoskeletal: Spontaneously moving all extremities. Skin: warm, dry, intact. Neuro: GCS 15. No focal neurologic deficits observed. Psych: Patient's affect is appropriate for situation. - General Limitations: no limitations General appearance: alert, in no apparent distress Course Course Narrative: EKG dated 10/26/2018 and 04:29 interpreted as sinus rhythm with rate of 75. IN 135, QRS 93, QTC 424. Normal axis. Inferior lateral Q waves. Nonspecific ST-T changes. Compared to previous EKG dated 03/23/20 changes or comparison. Chest pain resolved after 2 SL nitro. Systolic BP was 117 after this. Serum hematology is unremarkable. Serum chemistries unremarkable. Chest x-ray is unremarkable. EKG shows no acute ischemic changes. Initial troponin is within normal limits. Given patient's onset of chest pain one hour prior to arrival this is well within the wound open certainty. Patient is agreeable to admission to the hospital for cycle troponins and continue cardiac evaluation. I discussed the above with the admitting hospitalist, Dr. Yusuf, who agrees to accept the patient given her high risk history and story in the context of her chest pain tonight. Vital Signs Temperature 98.2 F 10/26/18 04:27 Pulse Rate 75 10/26/18 04:27 Respiratory Rate 16 10/26/18 04:27 Blood Pressure 146/77 10/26/18 04:27 O2 Sat by Pulse Oximetry 98 10/26/18 04:27 Temperature 98.2 F 10/26/18 04:27 Pulse Rate 70 10/26/18 05:06 Respiratory Rate 24 10/26/18 05:06 Blood Pressure 130/64 10/26/18 05:06 O2 Sat by Pulse Oximetry 98 10/26/18 05:06 Oxygen Delivery Oxygen Delivery Nasal Cannula Chest Pain - Lab Data Result diagrams: 10/26/18 04:36 10/26/18 04:36 Lab Results 10/26/18 10/26/18 10/26/18 Range/Units 04:36 04:36 04:36 WBC 12.9 H (4.3-11.1) K/mcL RBC 4.89 (3.82-4.97) M/mcL Hgb 10.9 L (11.5-15.4) g/dL Hct 37.1 (35.3-44.9) % MCV 75.9 L (83.0-100.0) fL MCH 22.3 L (28.0-33.3) pg MCHC 29.4 L (31.6-35.5) g/dL RDW 20.3 H (11.5-14.5) % Plt Count 371 (140-400) K/mcL MPV 10.1 (9.4-12.4) fL Immature Gran % 0.5 (0-4) % Seg Neutrophils % 67.7 % Lymphocytes % 22.4 % Monocytes % 7.7 % Eosinophils % 1.2 % Basophils % 0.5 % Neutrophils # 8.7 (1.6-8.9) K/mcL Lymphocytes # 2.9 (0.6-4.6) K/mcL Monocytes # 1.0 (0.0-1.3) K/mcL Eosinophils # 0.2 (0.0-0.6) K/mcL Basophils # 0.1 (0.0-0.2) K/mcL PT 10.8 (9.4-12.1) Seconds INR 1.0 APTT 42.9 H (26.0-36.0) Seconds Sodium 137 (136-145) mEq/L Potassium 4.2 (3.5-5.1) mEq/L Chloride 97 L (98-107) mEq/L Carbon Dioxide 26 (23-29) mEq/L BUN 19 (8-23) mg/dL Creatinine 1.09 (0.60-1.20) mg/dL Est GFR ( Amer) > 60 (> 60) Est GFR (Non-Af Amer) 50 L (> 60) BUN/Creatinine Ratio 17 (6-26) Glucose 111 H (70-105) mg/dL Calculated Osmolality 287 (280-300) Calcium 9.4 (8.6-10.3) mg/dL Troponin I < 0.03 (< 0.04) ng/mL Heart Score - Score History: Highly Suspicious EKG: Non Specific repolarisation Disturbance Age: Greater than 65 Risk Factors: Equal/Greater than 3 risk factor or history of atherosclerotic disease Troponin: Less than normal limit HEART Score Total: 7 Attestation Statement - Attestation Attestation: Dr. Morales note:/ Attestation: Patient seen in conjunction with emergency medicine resident Dr. Rubio. Please see his charting for complete documentation. Spent [id number] time with the patient and I agree with the patient's treatment and disposition. Pelvis chest pain at rest tonight which woke her from sleep. Denies such symptoms prior. Last heart attack years ago was not accompanied by such overt symptoms. Pain resolved in the ER after nitroglycerin. EKG and labs reviewed. Admitted in stable and improved condition and was pain-free at the time of admission
[2018-10-26] MEDS: Nitroglycerin 0.4 MG TAB.SUBL SL SCH ×2 (04:45→04:51)
[2018-10-26 04:55] LABS: Basophils # 0.1 K/mcL (0.0-0.2); Basophils % 0.5 %; Eosinophils # 0.2 K/mcL (0.0-0.6); Eosinophils % 1.2 %; Hematocrit 37.1 % (35.3-44.9); Hemoglobin 10.9 g/dL (11.5-15.4); Immature Granulocytes % 0.5 % (0-4); Lymphocytes # 2.9 K/mcL (0.6-4.6); Lymphocytes % 22.4 %; Mean Corpuscular HGB Conc 29.4 g/dL (31.6-35.5); Mean Corpuscular Hemoglobin 22.3 pg (28.0-33.3); Mean Corpuscular Volume 75.9 fL (83.0-100.0); Mean Platelet Volume 10.1 fL (9.4-12.4); Monocytes % 7.7 %; Neutrophils # 8.7 K/mcL (1.6-8.9); Platelet Count 371 K/mcL (140-400); Red Blood Count 4.89 M/mcL (3.82-4.97); Red Cell Distribution Width 20.3 % (11.5-14.5); Segmented Neutrophils % 67.7 %
[2018-10-26 05:04] LABS: Prothrombin Time 10.8 Seconds (9.4-12.1)
[2018-10-26 05:06] LABS: Activated Partial Thrombo Time 42.9 Seconds (26.0-36.0)
[2018-10-26 05:16] LABS: BUN/Creatinine Ratio 17 (6-26); Blood Urea Nitrogen 19 mg/dL (8-23); Calcium 9.4 mg/dL (8.6-10.3); Carbon Dioxide 26 mEq/L (23-29); Chloride 97 mEq/L (98-107); Glucose 111 mg/dL (70-105); Osmolality,Calculated 287 (280-300); Potassium 4.2 mEq/L (3.5-5.1); Sodium 137 mEq/L (136-145); Troponin I < 0.03 ng/mL (< 0.04); eGFR For Non-African Americans 50 (> 60)
[2018-10-26] MEDS ORDERED: Naloxone 0.4 MG/ML INJ IVP PRN (08:10)
[2018-10-26] MEDS ORDERED: Ondansetron ODT 4 MG TAB.RAPDIS SL PRN (08:10)
[2018-10-26] MEDS ORDERED: Fluticasone Propionate Nasal 50 MCG/SPRAY BOTTLE NS PRN (08:43)
[2018-10-26] MEDS ORDERED: Loratadine 10 MG TABLET PO SCH (09:00)
--- NOTE | 2018-10-26 09:11 | Internal Med History&Physical ---
Date of Encounter: 10/26/18 Time of Encounter: 09:11 Internal Medicine - H&P: HPI Chief complaint: CP Admitted From: Emergency Dept Plans for Post Hospital Care: Home History of present illness: Ms. Ferguson is a 68 year old female past medical history of hypertension hyperlipidemia CAD with 1 stent placement and spinal cord stimulator. Patient states that she was awake watching a movie when she began to experience sudden onset of midsternal chest pain with a heavy sensation that radiated to her left jaw. She denied any shortness of breath or nausea. She did take a sublingual nitroglycerin with some improvement-however the pain persisted and then she took a second nitroglycerin. She went to the ER or evaluation due to the continued chest pain. Prior to this episode she has been having her normal state In the ER lab work was unremarkable EKG with no signs of ischemia chest x-ray with no acute process patient was admitted for further work up and evaluation. Currently patient is chest pain-free discuss treatment plan with the patient verbalized understanding. Past Med Surg Social Fam HX - Past Medical History Medical history: asthma, cancer, COPD, coronary artery disease, GERD, hyperlipidemia, hypertension, other Additional medical history: breast ca Psychiatric history: no psych history - Past Surgical History Surgical History: angioplasty/stent, appendectomy, breast surgery, cataract, cholecystectomy, herniorrhaphy, hysterectomy, orthopedic, other, other Additional surgical history: CARDIAC STENT - Social History Smoking Status: Never smoker Smokeless Tobacco Status: No Alcohol use: none Drug use: none - Family History Mother Living Status: Hx Family Cancer: Yes Sister Living Status: Hx Family Cancer: Yes Father Living Status: Hx Family Cardiac Disorders: Yes Internal Medicine - H&P: Meds Albuterol Sulfate [Ventolin Hfa] 2 puff IH Q4H PRN 10/16/17 [History] Aspirin [Lo-Dose Aspirin EC] 81 mg PO DAILY 10/16/17 [History] Atorvastatin Calcium 80 mg PO HS 10/16/17 [History] Cholecalciferol (D-3) [Vitamin D] 2,000 unit PO DAILY 10/16/17 [History] Cyanocobalamin/Folic Acid [B-12 1,000 Mcg Sub Tablet] 1 tab SL DAILY 10/16/17 [H istory] Fluticasone Propionate Nasal [Flonase] 1 spr NS DAILY PRN 10/16/17 [History] Fluticasone/Vilanterol [Breo Ellipta 100-25 Mcg INH] 1 puff IH DAILY PRN 10/16/17 [History] Furosemide [Lasix] 80 mg PO BID 10/16/17 [History] Isosorbide MONOnitrate [Isosorbide Mononitrate ER] 120 mg PO DAILY 10/16/17 [History] Metoprolol Succinate 50 mg PO BID 10/16/17 [History] Montelukast [Singulair] 10 mg PO HS 10/16/17 [History] Pantoprazole Sodium 40 mg PO BID 10/16/17 [History] Potassium Chloride [K-Tab ER] 20 meq PO BID 10/16/17 [History] Pregabalin [Lyrica] 150 mg PO BID 10/16/17 [History] Spironolactone [Aldactone] 50 mg PO BID 10/16/17 [History] Cefpodoxime Proxetil 100 mg PO BID #14 tablet 03/23/18 [Rx] Biotin 1,000 mcg PO DAILY 04/01/18 [History] Nitroglycerin [Nitrostat] 0.4 mg SL AD PRN 04/01/18 [History] Baclofen 10 mg PO TID PRN 10/26/18 [History] Budesonide/Formoterol 160/4.5 [Symbicort 160/4.5] 2 puff IH DAILY 10/26/18 [History] Levocetirizine Dihydrochloride [Allergy Relief (Xyzal)] 5 mg PO DAILY 10/26/18 [History] Meclizine 10/26/18 [History] Meclizine HCl [Verticalm] 25 mg PO Q6HR PRN 10/26/18 [History] Nitrofurantoin (BID) [Macrobid] 100 mg PO DAILY 10/26/18 [History] Allergy/AdvReac Type Severity Reaction Status Date / Time Penicillins Allergy Severe Difficulty Verified 08/26/18 11:46 Breathing adhesive tape Allergy Blister Verified 08/26/18 11:46 ciprofloxacin Allergy Rash Verified 08/26/18 11:46 latex Allergy Itching Verified 08/26/18 11:46 cephalexin [From Keflex] AdvReac Gastrointestinal Verified 08/26/18 11:46 Upset sulfamethoxazole AdvReac Gastrointestinal Verified 08/26/18 11:46 [From Bactrim] Upset trimethoprim [From Bactrim] AdvReac Gastrointestinal Verified 08/26/18 11:46 Upset All Systems PM: A 10-system review of systems was performed and is negative for pertinent findings except as documented above in the HPI. - Constitutional Constitutional: no chills, no fever(s), no night sweats - EENT Eyes: no change in vision, no discharge, no pain, no photophobia Ears: no ear discharge, no ear pain, no tinnitus Nose, mouth and throat: no dysphagia, no nasal discharge, no neck pain, no sore throat - Cardiovascular Cardiovascular ROS IM: no chest pain, no diaphoresis, no dyspnea, no lightheadedness, no palpitations, no syncope - Respiratory Respiratory: no cough, no dyspnea, no wheezing, no excessive phlegm production - Gastrointestinal Gastrointestinal: no abdominal pain, no diarrhea, no hematemesis, no hematochezia, no melena, no nausea, no vomiting - Genitourinary Genitourinary: no change in urinary stream, no dysuria, no flank pain, no hematuria - Musculoskeletal Musculoskeletal ROS IM: no numbness, no tingling - Integumentary Integumentary IM: as per HPI - Neurological Neurological ROS: no confusion, no convulsions, no focal weakness, no numbness, no tingling, no tremor(s) - Hematologic/Lymphatic Hematologic/Lymphatic: no easy bruising - Constitutional Vitals: Temp Pulse Resp BP Pulse Ox 98.5 F 75 16 124/80 95 10/26/18 06:35 10/26/18 06:35 10/26/18 06:35 10/26/18 06:35 10/26/18 06:35 Exam: Skin: Free of rash and discoloration. Eyes: Sclera is white. There is no discharge from eyes. ENMT: Oral/pharyngeal mucosa is normal in appearance. There is no discharge from nose or ears. Respiratory: Normal breath sounds with no crackles and wheezes bilaterally. CV: Heart is regular with no gallop or murmur. GI: Abdomen is flat and soft with no palpable mass or visceromegaly. : There is no tenderness in patient's flanks bilaterally. Neuro exam: He has good strength in upper and lower extremities. He has normal eye movements. Psychiatric: He has normal affect. His thought process is appropriate to the situation. Internal Med - H&P Results - Labs CBC & Chem 7: 10/26/18 04:36 10/26/18 04:36 Labs: Short CBC 10/26/18 Range/Units 04:36 WBC 12.9 H (4.3-11.1) K/mcL Hgb 10.9 L (11.5-15.4) g/dL Hct 37.1 (35.3-44.9) % Plt Count 371 (140-400) K/mcL Neutrophils # 8.7 (1.6-8.9) K/mcL BMP 10/26/18 04:36 Sodium 137 Potassium 4.2 Chloride 97 L Carbon Dioxide 26 BUN 19 Creatinine 1.09 Glucose 111 H Calcium 9.4 Cardiac Enzymes 10/26/18 Range/Units 04:36 Troponin I < 0.03 (< 0.04) ng/mL - Impressions ITS Impressions Chest X-Ray 10/26/18 04:26 IMPRESSION: No acute findings D/ / Betty Brandon MD / Betty Brandon MD Interpreting Provider: Betty Brandon MD - Assessment and Plan (1) Chest pain Current Visit: Yes Status: Acute Assessment and plan: Patient has a past history of CAD with stent placement last stress test was in 2017 which was negative for any ischemia or infarct-resented with midsternal chest pain which occurred at rest relieved after 2 nitroglycerin Troponins have been negative 1 we will continue trend trop Continuous cardiac monitoring Cardiac echo Continue with aspirin and statin beta beatriz Nitroglycerin as needed for chest pain Nothing by mouth after midnight Stress test in a.m. Consult cardiology as needed Qualifiers: Chest pain type: unspecified Qualified Code(s): R07.9 - Chest pain, unspecified (2) DVT prophylaxis Current Visit: No Status: Acute Assessment and plan: Heparin subcutaneous (3) CAD (coronary artery disease) Current Visit: No Status: Chronic Assessment and plan: cont with aspirin and statin beta beatriz Qualifiers: Coronary Disease-Associated Artery/Lesion type: [place] artery [place] vs. transplanted heart: [place] heart Associated angina: angina presence unspecified Qualified Code(s): I25.10 - Atherosclerotic heart disease of [place] coronary artery without angina pectoris (4) COPD (chronic obstructive pulmonary disease) Current Visit: No Status: Chronic Assessment and plan: Stable at this time continue with bronchodilators Qualifiers: COPD type: unspecified COPD Qualified Code(s): J44.9 - Chronic obstructive pulmonary disease, unspecified - Time Spent With Patient Total time spent is greater than 50% in coordination of care (as documented) at patient's floor/unit and/or counseling patient:
[2018-10-26] MEDS: Budesonide/Formoterol 160/4.5 1 PUFF INH IH SCH (10:01)
[2018-10-26] MEDS: Biotin 1,000 MCG PO SCH (10:21)
[2018-10-26] MEDS: Isosorbide MONOnitrate (24 HR) 60 MG TAB.ER.24H PO SCH (10:24)
[2018-10-26] MEDS: Pregabalin 75 MG CAPSULE PO SCH ×2 (10:24→21:13)
[2018-10-26] MEDS: Cholecalciferol (D-3) 1,000 UNIT TABLET PO SCH (10:24)
[2018-10-26] MEDS: Metoprolol XL (24 HR) Succ 50 MG TAB.ER.24H PO SCH ×2 (10:24→21:13)
[2018-10-26] MEDS: Furosemide 40 MG TABLET PO SCH ×2 (10:25→21:12)
[2018-10-26] MEDS: *HR* Heparin 5,000 UNIT/ML VIAL SQ SCH (18:09)
[2018-10-26] MEDS ORDERED: Perflutren Lipid Microsphere 1.3 ML in 0.9 % Sodium Chloride 8.7 ML IVP ONE (20:49)
[2018-10-26] MEDS: Loratadine 10 MG TABLET PO SCH (23:00)
--- NOTE | 2018-10-26 23:06 | Electrocardiograph Report ---
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
[2018-10-27] MEDS ORDERED: Regadenoson 0.4 MG/5 ML SYRINGE IVP ONE (06:15)
[2018-10-27] MEDS: *HR* Heparin 5,000 UNIT/ML VIAL SQ SCH ×2 (06:20→17:50)
[2018-10-27 06:24] LABS: Basophils % 0.4 %; Eosinophils # 0.2 K/mcL (0.0-0.6); Eosinophils % 1.7 %; Hematocrit 35.2 % (35.3-44.9); Hemoglobin 10.6 g/dL (11.5-15.4); Immature Granulocytes % 0.4 % (0-4); Lymphocytes # 2.3 K/mcL (0.6-4.6); Lymphocytes % 25.9 %; Mean Corpuscular HGB Conc 30.1 g/dL (31.6-35.5); Mean Corpuscular Hemoglobin 22.6 pg (28.0-33.3); Mean Corpuscular Volume 75.1 fL (83.0-100.0); Mean Platelet Volume 10.7 fL (9.4-12.4); Monocytes # 0.7 K/mcL (0.0-1.3); Monocytes % 8.1 %; Neutrophils # 5.7 K/mcL (1.6-8.9); Platelet Count 349 K/mcL (140-400); Red Blood Count 4.69 M/mcL (3.82-4.97); Red Cell Distribution Width 20.1 % (11.5-14.5); Segmented Neutrophils % 63.5 %
[2018-10-27] MEDS: Nitroglycerin 0.4 MG TAB.SUBL SL SCH (07:33)
[2018-10-27] MEDS: Budesonide/Formoterol 160/4.5 1 PUFF INH IH SCH (07:35)
[2018-10-27] MEDS: Acetaminophen 325 MG TABLET PO PRN ×2 (08:03→13:48)
--- NOTE | 2018-10-27 09:41 | Electrocardiograph Report ---
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
[2018-10-27] MEDS: Isosorbide MONOnitrate (24 HR) 60 MG TAB.ER.24H PO SCH (12:46)
[2018-10-27] MEDS: Cholecalciferol (D-3) 1,000 UNIT TABLET PO SCH (12:51)
[2018-10-27] MEDS: Pregabalin 75 MG CAPSULE PO SCH ×2 (12:51→21:17)
[2018-10-27] MEDS: Aspirin Enteric Coated 81 MG Tablet PO SCH (12:51)
[2018-10-27] MEDS: Furosemide 40 MG TABLET PO SCH ×2 (12:51→21:17)
[2018-10-27] MEDS: Biotin 1,000 MCG PO SCH (12:52)
[2018-10-27] MEDS: Metoprolol XL (24 HR) Succ 50 MG TAB.ER.24H PO SCH ×2 (12:52→21:18)
--- NOTE | 2018-10-27 12:57 | Internal Med Progress Note ---
Hospitalist Progress Note - Encounter Date of Encounter: 10/27/18 Time of Encounter: 12:54 - Subjective Interval History: Patient seen and examined in the room. She currently has no chest pain. She denies shortness of breath, palpitation, or lightheadedness. - Exam Vitals: Temp Pulse Resp BP Pulse Ox 97.6 F 69 18 99/57 96 10/27/18 10:54 10/27/18 10:54 10/27/18 10:55 10/27/18 10:54 10/27/18 10:55 Exam: Skin: Free of rash and discoloration. Eyes: Sclera is white. There is no discharge from eyes. ENMT: Oral/pharyngeal mucosa is normal in appearance. There is no discharge from nose or ears. Respiratory: Normal breath sounds with no crackles and wheezes bilaterally. CV: Heart is regular with no gallop or murmur. GI: Abdomen is flat and soft with no palpable mass or visceromegaly. : There is no tenderness in patient's flanks bilaterally. Neuro exam: He has good strength in upper and lower extremities. He has normal eye movements. Psychiatric: He has normal affect. His thought process is appropriate to the situation. - Assessment and Plan (1) Chest pain Current Visit: Yes Status: Acute Assessment and Plan: Patient has a past history of CAD with stent placement last stress test was in 2017 which was negative for any ischemia or infarct-resented with midsternal chest pain which occurred at rest relieved after 2 nitroglycerin Troponins have been negative 1 we will continue trend trop Continuous cardiac monitoring Cardiac echo Continue with aspirin and statin beta beatriz Nitroglycerin as needed for chest pain Stress test pending. (2) CAD (coronary artery disease) Current Visit: No Status: Chronic Assessment and Plan: cont with aspirin and statin beta beatriz (3) COPD (chronic obstructive pulmonary disease) Current Visit: No Status: Chronic Assessment and Plan: Stable at this time continue with bronchodilators (4) DVT prophylaxis Current Visit: No Status: Acute Assessment and Plan: Heparin subcutaneous - Time Spent with Patient Total time spent is greater than 50% in coordination of care (as documented) at patient's floor/unit and/or counseling patient: Greater than 35 minutes Plan of Care Discussed with: patient Internal Medicine: Result - Labs CBC & Chem 7: 10/27/18 05:20 10/26/18 04:36 Labs: Short CBC 10/27/18 Range/Units 05:20 WBC 9.0 (4.3-11.1) K/mcL Hgb 10.6 L (11.5-15.4) g/dL Hct 35.2 L (35.3-44.9) % Plt Count 349 (140-400) K/mcL Neutrophils # 5.7 (1.6-8.9) K/mcL Cardiac Enzymes 10/26/18 Range/Units 17:05 Troponin I < 0.03 (< 0.04) ng/mL - ABG Interpretation ABG results: PT/INR, D-dimer PT 10.8 Seconds (9.4-12.1) 10/26/18 04:36 - Impressions Impressions Echocardiogram 10/26/18 16:43 Impressions: LVEF 55%. Mild left ventricular diastolic dysfunction. Normal right ventricular structure and function. Mild mitral regurgitation. Mild tricuspid regurgitation. No pulmonary hypertension. Left Ventricular Wall Motion: Rest Echo Findings All wall segments showed normal motion. Findings: Study Quality * Technically adequate exam. ECG Findings * Normal sinus rhythm. Left Ventricle * LVEF 55%. * Normal LV chamber size, wall thickness and function. * Mild left ventricular diastolic dysfunction. Right Ventricle * Normal right ventricular structure and function. Left Atrium * Mildly dilated left atrium. Right Atrium * Normal right atrial size. Aortic Valve * No aortic regurgitation. * Aortic valve not well visualized. * No aortic stenosis. Mitral Valve * No mitral stenosis. * Mild mitral regurgitation. * Normal mitral valve structure. Tricuspid Valve * Normal tricuspid valve structure. * Mild tricuspid regurgitation. * Estimated RA pressure is 3 mmHg. * Estimated RVSP is 24 mmHg. * No pulmonary hypertension. Pulmonic Valve * Pulmonic valve is not well visualized. * No pulmonic stenosis. * No pulmonic regurgitation. Pulmonary Artery * Pulmonary artery not well visualized. Aorta * Normally sized aortic root. Pericardium * There is no pericardial effusion present. Interatrial Septum * No evidence of PFO by color Doppler. IVC * Normal IVC dimensions and inspiratory collapse. Consult Discharge Plan - Plan Referrals: Javier Espinoza MD [Partnered Physician] - 11/02/18 11:00 am (1) Chest pain Qualifiers: Chest pain type: unspecified Qualified Code(s): R07.9 - Chest pain, unspecified (2) CAD (coronary artery disease) Qualifiers: Coronary Disease-Associated Artery/Lesion type: [place] artery [place] vs. transplanted heart: [place] heart Associated angina: angina presence unspecified Qualified Code(s): I25.10 - Atherosclerotic heart disease of [place] coronary artery without angina pectoris (3) COPD (chronic obstructive pulmonary disease) Qualifiers: COPD type: unspecified COPD Qualified Code(s): J44.9 - Chronic obstructive pulmonary disease, unspecified
[2018-10-27 14:53] LABS: BUN/Creatinine Ratio 22 (6-26); Blood Urea Nitrogen 20 mg/dL (8-23); Calcium 9.6 mg/dL (8.6-10.3); Carbon Dioxide 26 mEq/L (23-29); Chloride 98 mEq/L (98-107); Chol/HDL Ratio 2.9 (0-4.9); Cholesterol 156 mg/dL (< 200); Glucose 161 mg/dL (70-105); HDL Cholesterol 54 mg/dL (40-59); LDL Cholesterol,Calculated 73 mg/dL (0-99); Magnesium 2.2 mg/dL (1.6-2.6); Osmolality,Calculated 284 (280-300); Potassium 4.3 mEq/L (3.5-5.1); Sodium 134 mEq/L (136-145); Triglycerides 143 mg/dL (< 150); eGFR For Non-African Americans > 60 (> 60)
[2018-10-27] MEDS: Loratadine 10 MG TABLET PO SCH (21:17)
[2018-10-27] MEDS: Baclofen 10 MG TABLET PO PRN (21:18)
[2018-10-28] MEDS: *HR* Heparin 5,000 UNIT/ML VIAL SQ SCH (05:06)
[2018-10-28 06:46] LABS: Hematocrit 34.7 % (35.3-44.9); Hemoglobin 10.3 g/dL (11.5-15.4); Mean Corpuscular HGB Conc 29.7 g/dL (31.6-35.5); Mean Corpuscular Hemoglobin 22.5 pg (28.0-33.3); Mean Corpuscular Volume 75.8 fL (83.0-100.0); Mean Platelet Volume 10.9 fL (9.4-12.4); Platelet Count 320 K/mcL (140-400); Red Blood Count 4.58 M/mcL (3.82-4.97); Red Cell Distribution Width 20.5 % (11.5-14.5)
[2018-10-28 06:59] LABS: BUN/Creatinine Ratio 19 (6-26); Blood Urea Nitrogen 18 mg/dL (8-23); Calcium 9.3 mg/dL (8.6-10.3); Carbon Dioxide 29 mEq/L (23-29); Chloride 98 mEq/L (98-107); Glucose 109 mg/dL (70-105); Osmolality,Calculated 282 (280-300); Potassium 4.6 mEq/L (3.5-5.1); Sodium 135 mEq/L (136-145); eGFR For Non-African Americans 60 (> 60)
[2018-10-28] MEDS: Budesonide/Formoterol 160/4.5 1 PUFF INH IH SCH (07:33)
[2018-10-28] MEDS: Aspirin Enteric Coated 81 MG Tablet PO SCH (08:38)
[2018-10-28] MEDS: Isosorbide MONOnitrate (24 HR) 60 MG TAB.ER.24H PO SCH (08:38)
[2018-10-28] MEDS: Cholecalciferol (D-3) 1,000 UNIT TABLET PO SCH (08:38)
[2018-10-28] MEDS: Furosemide 40 MG TABLET PO SCH (08:38)
[2018-10-28] MEDS: Metoprolol XL (24 HR) Succ 50 MG TAB.ER.24H PO SCH (08:39)
[2018-10-28] MEDS: Biotin 1,000 MCG PO SCH (08:39)
[2018-10-28] MEDS: Pregabalin 75 MG CAPSULE PO SCH (08:39)
[2018-10-28] MEDS: Baclofen 10 MG TABLET PO PRN (08:54)
[2018-10-28 11:41] VITALS: BP 100/54
--- NOTE | 2018-10-28 11:45 | Internal Med Progress Note ---
Hospitalist Progress Note - Encounter Date of Encounter: 10/28/18 Time of Encounter: 11:43 - Subjective Interval History: Sincerely and exam in the room. She reported intermittent chest pain. She denies shortness breath, palpitation, or lightheadedness. She has no history of indigestion or GERD. - Exam Vitals: Temp Pulse Resp BP Pulse Ox 98.5 F 77 16 100/54 95 10/28/18 11:39 10/28/18 11:39 10/28/18 11:39 10/28/18 11:39 10/28/18 11:39 Exam: Skin: Free of rash and discoloration. Eyes: Sclera is white. There is no discharge from eyes. ENMT: Oral/pharyngeal mucosa is normal in appearance. There is no discharge from nose or ears. Respiratory: Normal breath sounds with no crackles and wheezes bilaterally. CV: Heart is regular with no gallop or murmur. GI: Abdomen is flat and soft with no palpable mass or visceromegaly. : There is no tenderness in patient's flanks bilaterally. Neuro exam: He has good strength in upper and lower extremities. He has normal eye movements. Psychiatric: He has normal affect. His thought process is appropriate to the situation. - Assessment and Plan (1) Chest pain Current Visit: Yes Status: Acute Assessment and Plan: 10/27 Patient has a past history of CAD with stent placement last stress test was in 2016 which was negative for any ischemia or infarct-resented with midsternal chest pain which occurred at rest relieved after 2 nitroglycerin Troponins have been negative 1 we will continue trend trop Continuous cardiac monitoring Cardiac echo Continue with aspirin and statin beta betariz Nitroglycerin as needed for chest pain Stress test pending. 10/28 Serial troponin was negative, EKG has no acute ST-T change. Echocardiogram results reviewed, unremarkable. Stress test was negative for ischemia or infarct. Patient wishes for a cardiology consult, continue monitoring. (2) CAD (coronary artery disease) Current Visit: No Status: Chronic Assessment and Plan: cont with aspirin and statin beta beatriz (3) COPD (chronic obstructive pulmonary disease) Current Visit: No Status: Chronic Assessment and Plan: Stable at this time continue with bronchodilators (4) DVT prophylaxis Current Visit: No Status: Acute Assessment and Plan: Heparin subcutaneous - Time Spent with Patient Total time spent is greater than 50% in coordination of care (as documented) at patient's floor/unit and/or counseling patient: Greater than 35 minutes Plan of Care Discussed with: patient Internal Medicine: Result - Labs CBC & Chem 7: 10/28/18 05:25 10/28/18 05:25 Labs: Short CBC 10/28/18 Range/Units 05:25 WBC 10.3 (4.3-11.1) K/mcL Hgb 10.3 L (11.5-15.4) g/dL Hct 34.7 L (35.3-44.9) % Plt Count 320 (140-400) K/mcL BMP 10/27/18 10/28/18 14:01 05:25 Sodium 134 L 135 L Potassium 4.3 4.6 Chloride 98 98 Carbon Dioxide 26 29 BUN 20 18 Creatinine 0.92 0.93 Glucose 161 H 109 H Calcium 9.6 9.3 - ABG Interpretation ABG results: PT/INR, D-dimer PT 10.8 Seconds (9.4-12.1) 10/26/18 04:36 Consult Discharge Plan - Plan Referrals: Javier Espinoza MD [Partnered Physician] - 11/02/18 11:00 am (1) Chest pain Qualifiers: Chest pain type: unspecified Qualified Code(s): R07.9 - Chest pain, unspecified (2) CAD (coronary artery disease) Qualifiers: Coronary Disease-Associated Artery/Lesion type: [place] artery [place] vs. transplanted heart: [place] heart Associated angina: angina presence unspecified Qualified Code(s): I25.10 - Atherosclerotic heart disease of [place] coronary artery without angina pectoris (3) COPD (chronic obstructive pulmonary disease) Qualifiers: COPD type: unspecified COPD Qualified Code(s): J44.9 - Chronic obstructive pulmonary disease, unspecified
--- NOTE | 2018-10-28 13:39 | Cardiology Consult Note ---
Date of Encounter: 10/28/18 Time of Encounter: 13:36 Assessment and Plan (1) Chest pain Current Visit: Yes Status: Acute Presented to ED for 2 episodes of chest pain at rest. No exacerbating factors. Reports the pain was squeezing, associated with feeling flush. She took nitro, but was already pain free. Has been CP free ~24 hours. Troponins negative. No ischemic ECG changes. Nuclear stress test completed yesterday negative for ischemia or infarct. TTE 10/26/18: LVEF 55%. Mild LVDD. Normal RV structure and function. Mild MR and TR. No phtn. Hx of CAD with PCI to dRCA in 2009. [facility] 11/16/2013: Left main normal. LAD mid 40% stenosis. Circumflex proximal 40% stenosis. RCA proximal 20% stenosis, distal patent stent. Continue ASA, Statin, BB, Imdur. Will add Ranexa 500mg BID. Anticipate sign off once seen and evaluated by Dr. Ahn. Will coordinate outpt follow-up in 2-3 weeks. Qualifiers: Chest pain type: unspecified Qualified Code(s): R07.9 - Chest pain, unspecified (2) CAD (coronary artery disease) Current Visit: No Status: Chronic Hx PCI. ASA, Statin, BB, Nitrates. Qualifiers: Coronary Disease-Associated Artery/Lesion type: [place] artery [place] vs. transplanted heart: [place] heart Associated angina: angina presence unspecified Qualified Code(s): I25.10 - Atherosclerotic heart disease of [place] coronary artery without angina pectoris Discussion w patient/family: The assessment and plan as outlined above was discussed with the patient and/or family members who expressed understanding and agreement. All questions were answered. Thank you for involving us in the care of your patient. Please call with any questions. I will discuss all the above with Dr. Ahn and make changes as necessary. History of Present Illness Consult date: 10/28/18 Consult reason: chest pain Chief complaint: chest pain History of present illness: Ms. Ferguson is a 68 year old female with PMH of CAD, prior PCI to the distal RCA in 2009, essential HTN, HLD. Presented to ED for 2 episodes of chest pain at rest. No exacerbating factors. Reports the pain was squeezing, associated with feeling flush and dyspnea. She took nitro, but was already pain free. Troponins negative. Nuclear stress test completed yesterday negative for ischemia or infarct. Cardiology consulted for further recs. No chest pain or tightness since yesterday evening. Prior cardiac testing: Nuclear stress 10/27/18: Pharmacologic ECG was non diagnostic for ischemia. Gated EF = >70%. No definite ischemia on perfusion imaging. No infarct. TTE 10/26/18: LVEF 55%. Mild LVDD. Normal RV structure and function. Mild MR and TR. No phtn. Lexiscan nuclear stress test 10/18/2016: Negative for ischemia/infarct. Gated EF >70%. TTE 10/17/2016: LVEF 55-60%. Mild diastolic dysfunction. No VHD. No pHTN. TTE 10/06/2013: EF 60%. Mild MR. [facility] 11/16/2013: Left main normal. LAD mid 40% stenosis. Circumflex proximal 40% s tenosis. RCA proximal 20% stenosis, distal patent stent. Past Med Surg Social Fam HX - Past Medical History Medical history: asthma, cancer, COPD, coronary artery disease, GERD, hyperlipidemia, hypertension, other Additional medical history: breast ca Psychiatric history: no psych history - Past Surgical History Surgical History: angioplasty/stent Additional surgical history: CARDIAC STENT, spinal stimulator - Social History Smoking Status: Never smoker Smokeless Tobacco Status: No Alcohol use: none Drug use: none - Family History Mother Living Status: Hx Family Cancer: Yes Sister Living Status: Hx Family Cancer: Yes Father Living Status: Hx Family Cardiac Disorders: Yes Medications and Allergies Albuterol Sulfate [Ventolin Hfa] 2 puff IH Q4H PRN 10/16/17 [History] Aspirin [Lo-Dose Aspirin EC] 81 mg PO DAILY 10/16/17 [History] Atorvastatin Calcium 80 mg PO HS 10/16/17 [History] Cholecalciferol (D-3) [Vitamin D] 2,000 unit PO DAILY 10/16/17 [History] Fluticasone Propionate Nasal [Flonase] 2 spr NS BID PRN 10/16/17 [History] Furosemide [Lasix] 80 mg PO BID 10/16/17 [History] Metoprolol Succinate 50 mg PO BID 10/16/17 [History] Montelukast [Singulair] 10 mg PO HS 10/16/17 [History] Pantoprazole Sodium 40 mg PO BID 10/16/17 [History] Potassium Chloride [K-Tab ER] 20 meq PO BID 10/16/17 [History] Pregabalin [Lyrica] 150 mg PO BID 10/16/17 [History] Spironolactone [Aldactone] 50 mg PO BID 10/16/17 [History] Biotin 1,000 mcg PO DAILY 04/01/18 [History] Nitroglycerin [Nitrostat] 0.4 mg SL AD PRN 04/01/18 [History] Budesonide/Formoterol 160/4.5 [Symbicort 160/4.5] 2 puff IH QAM 10/26/18 [History] Levocetirizine Dihydrochloride [Allergy Relief (Xyzal)] 5 mg PO DAILY 10/26/18 [History] Meclizine HCl [Verticalm] 25 mg PO Q6HR PRN 10/26/18 [History] Nitrofurantoin (BID) [Macrobid] 100 mg PO QAM 10/26/18 [History] Baclofen [Lioresal] 10 mg PO TID PRN 10/27/18 [History] Bifidobacterium Infantis [Align] 4 mg PO DAILY 10/27/18 [History] Isosorbide MONOnitrate [Isosorbide Mononitrate ER] 120 mg PO QAM 10/27/18 [History] Multivitamin [Daily Multiple Vitamin] 1 tab PO DAILY 10/27/18 [History] Allergy/AdvReac Type Severity Reaction Status Date / Time Penicillins Allergy Severe Difficulty Verified 10/27/18 17:21 Breathing adhesive tape Allergy Blister Verified 10/27/18 17:21 ciprofloxacin Allergy Rash Verified 10/27/18 17:21 latex Allergy Itching Verified 10/27/18 17:21 cephalexin [From Keflex] AdvReac Gastrointestinal Verified 10/27/18 17:21 Upset sulfamethoxazole AdvReac Gastrointestinal Verified 10/27/18 17:21 [From Bactrim] Upset trimethoprim [From Bactrim] AdvReac Gastrointestinal Verified 10/27/18 17:21 Upset All Systems Review: The remainder of the systems were reviewed and are negative - Cardiovascular Cardiovascular: as per HPI, chest pain at rest, diaphoresis Physical Examination Vital Signs, Last 4 Hours Temp Pulse Resp BP Pulse Ox 10/28/18 11:39 98.5 F 77 16 100/54 95 10/28/18 11:34 16 98 Vital Signs Temp Pulse Resp BP Pulse Ox 10/28/18 11:39 98.5 F 77 16 100/54 95 10/28/18 11:34 16 98 10/28/18 07:35 16 98 10/28/18 07:03 98.3 F 65 16 105/70 98 10/28/18 03:55 14 96 10/27/18 23:40 14 96 10/27/18 23:37 97.9 F 84 14 131/72 94 10/27/18 20:19 12 96 10/27/18 19:00 98.7 F 80 14 131/76 98 10/27/18 15:31 16 96 10/27/18 15:00 97.7 F 74 14 137/70 93 Intake and Output 10/27/18 10/28/18 10/28/18 23:59 07:59 15:59 Intake Total 480 / 720 240 / 240 Output Total 400 / 400 600 / 600 Balance 80 / 320 -600 / -360 240 / -360 Intake: Oral 480 / 720 240 / 240 Output: Urine 400 / 400 600 / 600 Other: Meal Breakfast Percent of Meal Consumed 100% General: Conversant, No Apparent Distress HEENT: Atraumatic, Normocephaly, Mucus Membranes Moist Neck: No JVD, Normal carotid pulses Cardiac: Reg Rate and Rhythm, Normal S1 and S2, No Murmur Lungs: Normal Breath Sounds, No Wheeze, Rales, Rhonchi Neuro: Alert and responsive, No focal deficits noted Abdomen: Soft, Non-Tender Skin: No rashes noted on visualized skin Musculoskeletal: No Chest Wall Tenderness Extremities: No Clubbing, No Cyanosis, No Edema, Normal Pulses Results 10/28/18 05:25 10/28/18 05:25 Lab Results 10/27/18 10/28/18 10/28/18 14:01 05:25 05:25 WBC 10.3 Hgb 10.3 L Hct 34.7 L Plt Count 320 Sodium 134 L 135 L Potassium 4.3 4.6 Chloride 98 98 Carbon Dioxide 26 29 BUN 20 18 Creatinine 0.92 0.93 Glucose 161 H 109 H Calcium 9.6 9.3 Magnesium 2.2 Short CBC 10/28/18 Range/Units 05:25 WBC 10.3 (4.3-11.1) K/mcL Hgb 10.3 L (11.5-15.4) g/dL Hct 34.7 L (35.3-44.9) % Plt Count 320 (140-400) K/mcL BMP 10/28/18 10/27/18 Range/Units 05:25 14:01 Sodium 135 L 134 L (136-145) mEq/L Potassium 4.6 4.3 (3.5-5.1) mEq/L Chloride 98 98 (98-107) mEq/L Carbon Dioxide 29 26 (23-29) mEq/L BUN 18 20 (8-23) mg/dL Creatinine 0.93 0.92 (0.60-1.20) mg/dL Glucose 109 H 161 H (70-105) mg/dL Calcium 9.3 9.6 (8.6-10.3) mg/dL Active Medications Acetaminophen (Tylenol) 650 mg PO Q6HR PRN PRN Reason: Mild Pain/Fever Stop: 04/27/19 08:21 Last Admin: 10/27/18 13:48 Dose: 650 mg Documented by: Albuterol Sulfate (Albuterol Inhaler) 2 puff IH [id number] [facility] Stop: 04/27/19 08:44 Last Admin: 10/28/18 11:32 Dose: 2 puff Documented by: Aspirin (Aspirin Ec) 81 mg PO DAILY [facility] Stop: 04/28/19 09:01 Last Admin: 10/28/18 08:38 Dose: 81 mg Documented by: Atorvastatin Calcium (Lipitor) 80 mg PO HS [facility] Stop: 04/27/19 21:01 Last Admin: 10/27/18 21:17 Dose: 80 mg Documented by: Baclofen (Lioresal) 10 mg PO TID PRN PRN Reason: Pain Last Admin: 10/28/18 08:54 Dose: 10 mg Documented by: Budesonide/Formoterol Fumarate (Symbicort) 2 puff IH DAILYR [facility]; Protocol Stop: 04/27/19 10:01 Last Admin: 10/28/18 07:33 Dose: 2 puff Documented by: Fluticasone Propionate (Flonase) 50 mcg NS DAILY PRN; Protocol PRN Reason: Allergy Symptoms Stop: 04/27/19 08:44 Furosemide (Lasix) 80 mg PO BID [facility] Stop: 04/27/19 09:01 Last Admin: 10/28/18 08:38 Dose: 80 mg Documented by: Heparin Sodium (Porcine) (Heparin) 5,000 unit SQ Q12HCO [facility] Stop: 04/27/19 18:01 Last Admin: 10/28/18 05:06 Dose: 5,000 unit Documented by: Isosorbide Mononitrate (Imdur) 120 mg PO DAILY [facility] Stop: 04/27/19 09:01 Last Admin: 10/28/18 08:38 Dose: 120 mg Documented by: Loratadine (Claritin) 10 mg PO HS [facility] Stop: 04/27/19 22:16 Last Admin: 10/27/18 21:17 Dose: 10 mg Documented by: Metoprolol Succinate (Toprol Xl) 50 mg PO BID [facility] Stop: 04/27/19 09:01 Last Admin: 10/28/18 08:39 Dose: 50 mg Documented by: Montelukast Sodium (Singulair) 10 mg PO [facility] Stop: 04/27/19 21:01 Last Admin: 10/27/18 21:18 Dose: 10 mg Documented by: Naloxone HCl (Narcan) 0.4 mg IVP Q2MPRN PRN PRN Reason: SEE COMMENTS Stop: 04/27/19 08:11 Omeprazole (Prilosec) 20 mg PO BIDAC [facility] Stop: 04/27/19 10:01 Last Admin: 10/28/18 08:39 Dose: 20 mg Documented by: Ondansetron HCl (Zofran Odt) 4 mg SL Q8HR PRN PRN Reason: Nausea And Vomiting Stop: 04/27/19 08:11 Pharmacy Profile Note (Patient Taking Own Medication) 1 each PO DAILY [facility] Stop: 04/27/19 09:01 Last Admin: 10/28/18 08:39 Dose: Not Given Documented by: Potassium Chloride (Potassium Chloride) 20 meq PO BID [facility] Stop: 04/27/19 09:01 Last Admin: 10/28/18 08:38 Dose: 20 meq Documented by: Pregabalin (Lyrica) 150 mg PO BID [facility] Stop: 04/27/19 09:01 Last Admin: 10/28/18 08:39 Dose: 150 mg Documented by: Spironolactone (Aldactone) 50 mg PO BID [facility] Stop: 04/27/19 09:01 Last Admin: 10/28/18 08:38 Dose: 50 mg Documented by: Vitamin D (Vitamin D) 2,000 unit PO DAILY [facility] Stop: 04/27/19 09:01 Last Admin: 10/28/18 08:38 Dose: 2,000 unit Documented by: - Imaging and Cardiology Stress Test: report reviewed Echo: report reviewed Cardiac cath: report reviewed - EKG Interpretation EKG results cardiology: personally reviewed (SR) Consult Discharge Plan - Plan Referrals: Javier Espinoza MD [Partnered Physician] - 11/02/18 11:00 am
--- NOTE | 2018-10-28 14:57 | Discharge Summary ---
- NOTES TO OUTPATIENT PROVIDER Notes to Outpatient Provider: f/u with PCP within a week. f/u with cardiology within a month. Orders not resulted at time of discharge: Pending orders 10/26/18 16:44 NM jus perf SPECT multi [NM] Routine Date of Encounter: 10/28/18 Time of Encounter: 14:54 - Discharge Diagnosis (1) Chest pain Priority: Primary Status: Acute Qualifiers: Chest pain type: unspecified Qualified Code(s): R07.9 - Chest pain, unspecified (2) CAD (coronary artery disease) Priority: Secondary Status: Chronic Qualifiers: Coronary Disease-Associated Artery/Lesion type: [place] artery [place] vs. transplanted heart: [place] heart Associated angina: angina presence unspecified Qualified Code(s): I25.10 - Atherosclerotic heart disease of [place] coronary artery without angina pectoris (3) COPD (chronic obstructive pulmonary disease) Priority: Secondary Status: Chronic Qualifiers: COPD type: unspecified COPD Qualified Code(s): J44.9 - Chronic obstructive pulmonary disease, unspecified (4) DVT prophylaxis Priority: Primary Status: Acute Hospital course: Ms. Ferguson is a 68 year old female past medical history of hypertension hyperlipidemia CAD with 1 stent placement and spinal cord stimulator. Patient states that she was awake watching a movie when she began to experience sudden onset of midsternal chest pain with a heavy sensation that radiated to her left jaw. She denied any shortness of breath or nausea. She did take a sublingual nitroglycerin with some improvement-however the pain persisted and then she took a second nitroglycerin. She went to the ER or evaluation due to the continued chest pain. Prior to this episode she has been having her normal state In the ER lab work was unremarkable EKG with no signs of ischemia chest x-ray with no acute process patient was admitted for further work up and evaluation. Further workup showed negative serial troponin, ekg was unremarkable, an echo was performed which was unremarkable as well. She had stress test which was negative for ischemia or infarct. Cardiology was consulted and medical management was recommended. Renaxa was started. She is discharged home, f/u with PCP and cardiology was scheduled. Discharge discussed with: patient Time spent discussing smoking cessation with patient: more than 10 minutes - Time Spent with Patient Total time spent providing and/or coordinating discharge services: Time spent: Greater than 30 minutes - Discharge Medications Prescriptions: New Ranolazine [Ranexa] 500 mg PO BID #60 tab.er.12h Continued Albuterol Sulfate [Ventolin Hfa] 2 puff IH Q4H PRN PRN Reason: Wheezing Aspirin [Lo-Dose Aspirin EC] 81 mg PO DAILY Atorvastatin Calcium 80 mg PO HS Cholecalciferol (D-3) [Vitamin D] 2,000 unit PO DAILY Fluticasone Propionate Nasal [Flonase] 2 spr NS BID PRN PRN Reason: Allergy Symptoms Furosemide [Lasix] 80 mg PO BID Metoprolol Succinate 50 mg PO BID Montelukast [Singulair] 10 mg PO HS Pantoprazole Sodium 40 mg PO BID Potassium Chloride [K-Tab ER] 20 meq PO BID Pregabalin [Lyrica] 150 mg PO BID Spironolactone [Aldactone] 50 mg PO BID Nitroglycerin [Nitrostat] 0.4 mg SL AD PRN PRN Reason: Chest Pain Biotin 1,000 mcg PO DAILY Budesonide/Formoterol 160/4.5 [Symbicort 160/4.5] 2 puff IH QAM Meclizine HCl [Verticalm] 25 mg PO Q6HR PRN PRN Reason: Dizziness Nitrofurantoin (BID) [Macrobid] 100 mg PO QAM Levocetirizine Dihydrochloride [Allergy Relief (Xyzal)] 5 mg PO DAILY Baclofen [Lioresal] 10 mg PO TID PRN PRN Reason: Muscle Spasm Bifidobacterium Infantis [Align] 4 mg PO DAILY Isosorbide MONOnitrate [Isosorbide Mononitrate ER] 120 mg PO QAM Multivitamin [Daily Multiple Vitamin] 1 tab PO DAILY Home Medications: Albuterol Sulfate [Ventolin Hfa] 2 puff IH Q4H PRN 10/16/17 [History] Aspirin [Lo-Dose Aspirin EC] 81 mg PO DAILY 10/16/17 [History] Atorvastatin Calcium 80 mg PO HS 10/16/17 [History] Cholecalciferol (D-3) [Vitamin D] 2,000 unit PO DAILY 10/16/17 [History] Fluticasone Propionate Nasal [Flonase] 2 spr NS BID PRN 10/16/17 [History] Furosemide [Lasix] 80 mg PO BID 10/16/17 [History] Metoprolol Succinate 50 mg PO BID 10/16/17 [History] Montelukast [Singulair] 10 mg PO HS 10/16/17 [History] Pantoprazole Sodium 40 mg PO BID 10/16/17 [History] Potassium Chloride [K-Tab ER] 20 meq PO BID 10/16/17 [History] Pregabalin [Lyrica] 150 mg PO BID 10/16/17 [History] Spironolactone [Aldactone] 50 mg PO BID 10/16/17 [History] Biotin 1,000 mcg PO DAILY 04/01/18 [History] Nitroglycerin [Nitrostat] 0.4 mg SL AD PRN 04/01/18 [History] Budesonide/Formoterol 160/4.5 [Symbicort 160/4.5] 2 puff IH QAM 10/26/18 [History] Levocetirizine Dihydrochloride [Allergy Relief (Xyzal)] 5 mg PO DAILY 10/26/18 [History] Meclizine HCl [Verticalm] 25 mg PO Q6HR PRN 10/26/18 [History] Nitrofurantoin (BID) [Macrobid] 100 mg PO QAM 10/26/18 [History] Baclofen [Lioresal] 10 mg PO TID PRN 10/27/18 [History] Bifidobacterium Infantis [Align] 4 mg PO DAILY 10/27/18 [History] Isosorbide MONOnitrate [Isosorbide Mononitrate ER] 120 mg PO QAM 10/27/18 [History] Multivitamin [Daily Multiple Vitamin] 1 tab PO DAILY 10/27/18 [History] Ranolazine [Ranexa] 500 mg PO BID #60 tab.er.12h 10/28/18 [Rx] Allergies/Adverse Reactions: Allergy/AdvReac Type Severity Reaction Status Date / Time Penicillins Allergy Severe Difficulty Verified 10/27/18 17:21 Breathing adhesive tape Allergy Blister Verified 10/27/18 17:21 ciprofloxacin Allergy Rash Verified 10/27/18 17:21 latex Allergy Itching Verified 10/27/18 17:21 cephalexin [From Keflex] AdvReac Gastrointestinal Verified 10/27/18 17:21 Upset sulfamethoxazole AdvReac Gastrointestinal Verified 10/27/18 17:21 [From Bactrim] Upset trimethoprim [From Bactrim] AdvReac Gastrointestinal Verified 10/27/18 17:21 Upset Date of admission: 10/26/18 05:52 Primary care physician: PCP NONE Consults: 10/28/18 11:37 Consult to Cardiology [CONS] Routine Comment: Consulting Provider: Cardiology Radha Reason for Consult: CP Call Completed: Yes Anticipated date of discharge: 10/28/18 - Constitutional Vitals: Temp Pulse Resp BP Pulse Ox 98.5 F 77 16 100/54 95 10/28/18 11:39 10/28/18 11:39 10/28/18 11:39 10/28/18 11:39 10/28/18 11:39 General appearance: Present: A&O X 3 Exam: Skin: Free of rash and discoloration. Eyes: Sclera is white. There is no discharge from eyes. ENMT: Oral/pharyngeal mucosa is normal in appearance. There is no discharge from nose or ears. Respiratory: Normal breath sounds with no crackles and wheezes bilaterally. CV: Heart is regular with no gallop or murmur. GI: Abdomen is flat and soft with no palpable mass or visceromegaly. : There is no tenderness in patient's flanks bilaterally. Neuro exam: He has good strength in upper and lower extremities. He has normal eye movements. Psychiatric: He has normal affect. His thought process is appropriate to the situation. - Patient Status Disposition: Home, Self-Care Condition: Good Functional capacity at discharge: independent ambulation Overall status at discharge: patient is progressing back to baseline - Discharge Instructions Follow Up With: Javier Espinoza MD [Partnered Physician] - 11/02/18 11:00 am - Diet and Activity Activity: increase activity as tolerated Diet: low fat, low cholesterol, low salt diet
[2018-10-28] MEDS ORDERED: Ranolazine 500 MG TAB.ER.12H PO SCH (21:00)
== END 2018-10-28 15:38 | disposition home or self-care (01) ==
LOC: EMEROOARM 04:23 → 3BNU 04:23
PROVIDERS: ADMIT Internal Medicine; ATTEND Internal Medicine

== ENCOUNTER 2021-03-10 12:45 | Observation (INO) ==
[2021-03-10 15:11] LABS: Basophils # 0.1 K/mcL (0.0-0.2); Basophils % 0.7 %; Eosinophils # 0.1 K/mcL (0.0-0.6); Eosinophils % 1.2 %; Hematocrit 37.2 % (35.3-44.9); Hemoglobin 12.3 g/dL (11.5-15.4); Immature Granulocytes % 1.6 % (0-4); Immature Platelets 6.5 % (1.1-6.1); Lymphocytes % 24.3 %; Mean Corpuscular HGB Conc 33.1 g/dL (31.6-35.5); Mean Corpuscular Hemoglobin 29.3 pg (28.0-33.3); Mean Corpuscular Volume 88.6 fL (83.0-100.0); Mean Platelet Volume 11.4 fL (9.4-12.4); Monocytes # 0.6 K/mcL (0.0-1.3); Platelet Count 236 K/mcL (140-400); Segmented Neutrophils % 65.2 %; White Blood Count 8.1 K/mcL (4.3-11.1)
[2021-03-10 15:27] LABS: Neutrophils # 5.3 K/mcL (1.6-8.9)
[2021-03-10] MEDS ORDERED: Lidocaine 1% 20 ML MDV INFILT ONE (15:53)
[2021-03-10 19:08] LABS: BUN/Creatinine Ratio 19 (6-26); Blood Urea Nitrogen 17 mg/dL (8-23); C-Reactive Protein 53 mg/L (Less than 10); Calcium 9.2 mg/dL (8.6-10.3); Carbon Dioxide 24 mEq/L (23-29); Chloride 103 mEq/L (98-107); Glucose 85 mg/dL (70-105); Osmolality,Calculated 285 (280-300); Potassium 4.5 mEq/L (3.5-5.1); Sodium 137 mEq/L (136-145); eGFR For African Americans > 60 (> 60); eGFR For Non-African Americans > 60 (> 60)
[2021-03-10] MEDS ORDERED: Acetaminophen 325 MG TABLET PO PRN (23:01)
[2021-03-10] MEDS ORDERED: Ondansetron 4 MG/2 ML VIAL IVP PRN (23:01)
[2021-03-10] MEDS ORDERED: Naloxone 0.4 MG/ML INJ IVP PRN (23:01)
[2021-03-11] MEDS ORDERED: Fluticasone Propionate Nasal 50 MCG/SPRAY BOTTLE NS PRN (00:24)
[2021-03-11] MEDS: Pregabalin 75 MG CAPSULE PO SCH ×3 (01:05→20:02)
[2021-03-11] MEDS: tiZANidine 4 MG TABLET PO PRN ×2 (01:05→21:39)
[2021-03-11] MEDS: Isosorbide MONOnitrate (24 HR) 60 MG TAB.ER.24H PO SCH (07:56)
[2021-03-11] MEDS: Metoprolol XL (24 HR) Succ 50 MG TAB.ER.24H PO SCH ×2 (07:56→20:02)
[2021-03-11] MEDS: Ranolazine 500 MG TAB.ER.12H PO SCH ×2 (07:56→20:02)
[2021-03-11] MEDS: Furosemide 40 MG TABLET PO SCH ×2 (07:56→20:01)
[2021-03-11] MEDS: Cholecalciferol (D-3) 1,000 UNIT (25MCG) TABLET PO SCH ×2 (07:57→20:02)
[2021-03-11] MEDS: Cyanocobalamin (B-12) 1,000 MCG TABLET PO SCH ×2 (07:57→20:01)
[2021-03-11] MEDS: Aspirin Enteric Coated 81 MG Tablet PO SCH (07:57)
[2021-03-11] MEDS ORDERED: BIOTIN 1000 MCG PO SCH (09:00)
[2021-03-11] MEDS ORDERED: LEVOCETIRIZINE DIHYDROCHLORIDE PO SCH (09:00)
[2021-03-11] MEDS: Budesonide/Formoterol 160/4.5 1 PUFF INH IH SCH (10:16)
[2021-03-11 12:24] LABS: Hematocrit 37.8 % (35.3-44.9); Hemoglobin 12.3 g/dL (11.5-15.4); Mean Corpuscular HGB Conc 32.5 g/dL (31.6-35.5); Mean Corpuscular Hemoglobin 29.8 pg (28.0-33.3); Mean Corpuscular Volume 91.5 fL (83.0-100.0); Mean Platelet Volume 11.1 fL (9.4-12.4); Platelet Count 244 K/mcL (140-400); Red Blood Count 4.13 M/mcL (3.82-4.97); Red Cell Distribution Width 14.4 % (11.5-14.5); White Blood Count 7.1 K/mcL (4.3-11.1)
[2021-03-11 12:32] LABS: INR 1.2; Prothrombin Time 13.3 Seconds (9.4-12.1)
[2021-03-11 12:35] LABS: Activated Partial Thrombo Time 48.3 Seconds (26.0-36.0)
[2021-03-11 12:42] LABS: Estimated Average Glucose 117 mg/dl; Hemoglobin A1C 5.7 %
[2021-03-11 12:47] LABS: BUN/Creatinine Ratio 19 (6-26); Blood Urea Nitrogen 16 mg/dL (8-23); Calcium 9.1 mg/dL (8.6-10.3); Carbon Dioxide 26 mEq/L (23-29); Chloride 104 mEq/L (98-107); Chol/HDL Ratio 3.6 (0-4.9); Cholesterol 160 mg/dL (< 200); Glucose 101 mg/dL (70-105); HDL Cholesterol 45 mg/dL (40-59); LDL Cholesterol,Calculated 91 mg/dL (< 100); Magnesium 2.1 mg/dL (1.6-2.6); Osmolality,Calculated 289 (280-300); Potassium 3.7 mEq/L (3.5-5.1); Sodium 139 mEq/L (136-145); Triglycerides 121 mg/dL (< 150); eGFR For African Americans > 60 (> 60); eGFR For Non-African Americans > 60 (> 60)
[2021-03-11 12:56] LABS: Thyroid Stimulating Hormone 3.444 mcIU/mL (0.340-5.600)
[2021-03-11 13:20] LABS: Folate > 22.3 ng/mL (3.0-16.0); Vitamin B12 1347 pg/mL (250-1100); Vitamin D 25 Hydroxy 75 ng/mL (30-80)
[2021-03-11] MEDS: *HR* HYDROmorphone 2 MG TABLET PO PRN (21:39)
[2021-03-12] MEDS: *HR* HYDROmorphone 2 MG TABLET PO PRN (04:21)
[2021-03-12] MEDS: Cholecalciferol (D-3) 1,000 UNIT (25MCG) TABLET PO SCH (07:28)
[2021-03-12] MEDS: Cyanocobalamin (B-12) 1,000 MCG TABLET PO SCH (07:28)
[2021-03-12] MEDS: Isosorbide MONOnitrate (24 HR) 60 MG TAB.ER.24H PO SCH (07:28)
[2021-03-12] MEDS: Furosemide 40 MG TABLET PO SCH (07:29)
[2021-03-12] MEDS: Aspirin Enteric Coated 81 MG Tablet PO SCH (07:29)
[2021-03-12] MEDS: Ranolazine 500 MG TAB.ER.12H PO SCH (07:29)
[2021-03-12] MEDS: Pregabalin 75 MG CAPSULE PO SCH (07:29)
[2021-03-12] MEDS: Metoprolol XL (24 HR) Succ 50 MG TAB.ER.24H PO SCH (07:29)
[2021-03-12 08:30] LABS: Hematocrit 39.3 % (35.3-44.9); Hemoglobin 12.8 g/dL (11.5-15.4); Mean Corpuscular HGB Conc 32.6 g/dL (31.6-35.5); Mean Corpuscular Hemoglobin 29.8 pg (28.0-33.3); Mean Corpuscular Volume 91.4 fL (83.0-100.0); Mean Platelet Volume 11.2 fL (9.4-12.4); Platelet Count 268 K/mcL (140-400); Red Cell Distribution Width 14.4 % (11.5-14.5); White Blood Count 9.7 K/mcL (4.3-11.1)
[2021-03-12 08:50] LABS: BUN/Creatinine Ratio 17 (6-26); Blood Urea Nitrogen 18 mg/dL (8-23); Calcium 9.4 mg/dL (8.6-10.3); Carbon Dioxide 28 mEq/L (23-29); Chloride 99 mEq/L (98-107); Glucose 99 mg/dL (70-105); Osmolality,Calculated 282 (280-300); Potassium 4.1 mEq/L (3.5-5.1); Sodium 135 mEq/L (136-145); eGFR For African Americans > 60 (> 60); eGFR For Non-African Americans 53 (> 60)
[2021-03-12 09:42] LABS: Source,Synovial Fluid right knee
[2021-03-12] MEDS: Budesonide/Formoterol 160/4.5 1 PUFF INH IH SCH (09:48)
[2021-03-12 10:04] VITALS: BP 134/73; PULSE 74; TEMP 97.9; O2SAT 96
[2021-03-12 10:36] LABS: Appearance,Synovial Fluid Hazy (Clear-Hazy); Color,Synovial Fluid Straw (Straw)
[2021-03-12 11:21] LABS: Glucose,Synovial Fluid 16 mg/dL (No Ref Range); LDH,Synovial Fluid 46 Units/L (No Ref Range)
== END 2021-03-12 17:51 | disposition home or self-care (01) ==
LOC: EMEROOARM 12:45 → 4WAOSI 12:45 → SUATTDRO 19:58 → 4WAOSI 21:47
PROVIDERS: ADMIT Student in an Organized Health Care Education/Training Program; ATTEND Family Medicine